=== PATIENT | female | born 1960 | race Caucasian/White ===

== ENCOUNTER 2019-04-06 22:47 | Inpatient (IN) | payer OTHER ==
[~2019-04-06] VITALS: Ht 160 cm; Wt 101.5 kg
--- NOTE | ~2019-04-06 | HC ---
[facility] [place] [address] CONSULTATION Name: BRIANA DOWLING Room #: 207-[facility] IN .R.#: [id number] Admission: 04/07/19 ������������������ Attend Phys: Hal Vickers MD Discharge: ������������������ Date of : 62 Report #: [id number] THIS REPORT FOR: //name// CC: [facility] physician/PCP Hal Vickers DATE OF SERVICE: 04/08/2019 NEPHROLOGY CONSULTATION REASON FOR CONSULTATION: Elevated creatinine. HISTORY OF PRESENT ILLNESS: A 58-year-old patient with COPD, presented with shortness of air. She was found to have a serum creatinine of 1.4 and past records showed a similar creatinine. She has a history of hypertension and has taken chlorthalidone and lisinopril as an outpatient. She also is on metoprolol. In addition, she has inhalers for her COPD. PAST SURGICAL HISTORY: Has included cholecystectomy and appendectomy. SOCIAL HISTORY: Remarkable for a heavy smoker on a daily basis. FAMILY HISTORY: Positive for coronary artery disease and lung disease. REVIEW OF SYSTEMS: GENERAL: She is unwell. EYES: Her vision is okay. ENT: Hearing okay. Swallows okay. No mouth sores. ENDOCRINE: No diabetes. RESPIRATORY: Easily short-winded with some cough, no hemoptysis. CARDIAC: No chest pain, angina, palpitations or history of myocardial infarction. GASTROINTESTINAL: Reasonably good appetite. She did have trouble with diarrhea that is better. No bloody stools. GENITOURINARY: Good stream without dysuria, hematuria, or renal stones. NEUROLOGIC: No seizure, syncope or stroke. PSYCHIATRIC: No depression or anxiety. PHYSICAL EXAMINATION: GENERAL: This is a somewhat overweight woman in no acute distress. SKIN: Unremarkable. SKELETAL: Shows her to be well developed, well nourished. No amputations. HEENT: Extraocular movements are full. No scleral icterus. Hearing and vision intact. Mucous membranes moist. Tongue, buccal mucosa benign. NECK: Supple. No JVD or lymphadenopathy. CHEST: Shows some wheezing and increased expiratory phase. [facility] [address] [place] [address] CONSULTATION Name: BRIANA DOWLING Room #: 207- ADM IN M.R.#: [id number] Admission: 04/07/19 ������������������ Attend Phys: Hal Vickers MD Discharge: ������������������ Date of : 62 Report #: [id number] HEART: Regular. ABDOMEN: Soft and nontender. EXTREMITIES: Show 1+ generalized edema. NEUROLOGIC: Grossly intact. LABORATORY AND DIAGNOSTIC DATA: Hemoglobin is 9.1. Sodium 140, potassium 4, chloride 104, bicarbonate 26, BUN 36, creatinine 2.1. ASSESSMENT: 1. Chronic kidney disease. Creatinine is up, particularly with her attempts at diuresis. Evaluation will include urinary studies, paraprotein studies, renal sonography. Given her generalized right-sided failure and volume overload, I am hesitant to give her any IV fluids at this point, but I would hold any further diuretics until we can sort this out a little bit better. She did get some IV Lasix over the last couple of days along with her creatinine going up. Because of her severe chronic obstructive pulmonary disease, probably a converting enzyme inhibitor should be avoided as she may have some compromised renal perfusion due to her cor pulmonale. 2. Chronic obstructive pulmonary disease. 3. History of hypertension. 4. Cigarette smoking. ��������������������������������������������� ���������������������������������������� By: ��������������������������������������������� 1126 1234 Adam Leyva MD /nt
[2019-04-06 23:22] LABS: BE(vivo) -4.1 mmol/L (-2 to +3); HCO3 22.3 mmol/L (22.0-26.0); PCO2 46.5 mmHg (35.0-45.0); PO2 176.1 mmHg (80.0-100.0)
[2019-04-06 23:24] LABS: pH 7.299 (7.360-7.450)
[2019-04-06 23:25] LABS: HEMATOCRIT 29.4 % (37.0-47.0); HEMOGLOBIN 9.6 gm/dL (12.0-15.0); MCH 26.1 pg (26.0-34.0); MCHC 32.5 g/dL (28.0-37.0); MCV 80.3 fL (80.0-100.0); PLATELET COUNT 304 thou/uL (150-400); RBC 3.66 mil/uL (4.20-5.00); RDW 18.7 % (10.5-14.5); WBC 12.9 thou/uL (4.0-11.0)
[2019-04-06] MEDS ORDERED: PROTONIX 20 MG20 M1 PO (23:31)
[2019-04-06] MEDS ORDERED: LOPRESSOR25 PO (23:31)
[2019-04-06] MEDS ORDERED: CARAFATE 1 GM TA1 G1 PO (23:32)
[2019-04-06] MEDS ORDERED: PROAIR HFA8.5 GM INH (23:32)
[2019-04-06] MEDS ORDERED: DULERA 200 MCG/13 GM INH (23:33)
[2019-04-06] MEDS ORDERED: XANAX 0.25 MG0.25 MG PO (23:33)
[2019-04-06] MEDS ORDERED: CHLORTHALIDONE25 MG PO (23:34)
[2019-04-06] MEDS ORDERED: LISINOPRIL10 MG PO (23:34)
[2019-04-06 23:38] LABS: CALCIUM 8.2 mg/dL (8.5-10.1); CREATININE 1.4 mg/dL (0.6-1.0); POTASSIUM 4.2 mmol/L (3.5-5.1)
[2019-04-06 23:42] LABS: TROPONIN-I 0.18 ng/mL (<0.06)
[2019-04-06 23:59] LABS: ANISOCYTOSIS 2+; PLATELET ESTIMATE NORMAL; POIKILOCYTOSIS 1+; POLYCHROMASIA 1+
[2019-04-07] VITALS (8 sets, daily range): BP systolic 104–160; BP diastolic 52–112
--- NOTE | 2019-04-07 03:07 | NUR ---
ADMIT;PT ADMITTED TO 207 FROM ED,ARRIVED TO UNIT VIA CART ACCOMPANIED BY THE RN.PT A/OX4,DX NSTEMI,HYPOXIA,ACUTE PULMONARY EDEMA.ON 02 AT 10LITERS PER NRB UPON ARRIVAL TO UNIT WITH SPO2 100%.PT SWITCHED TO NC AT 5LITERS,TOLERATING.SPO2 97%.ORIENTED PT TO AND UNIT ACTIVITIES.REVIEWED POC ,INAGREEMENT.LARRY WITH TOILETING.PT STATED THAT SHE GOT DISCHARGED FROM [facility] ON THE 04/04,SHE WAS THERE WITH ABDOMNIANL PAIN,CHEST PAIN.ADMISSION ASSESSMENT COMPLETED DOCUMENTED.PT DENIES PAIN.VSS.PT RESTING AT THIS TIME.DENIES ANY NEEDS AT THIS TIME.WILL CONT TO MONITOR PER POC.
[2019-04-07 05:48] LABS: HEMOGLOBIN 9.1 gm/dL (12.0-15.0); MCH 26.3 pg (26.0-34.0); MCHC 32.6 g/dL (28.0-37.0); MCV 80.9 fL (80.0-100.0); RBC 3.47 mil/uL (4.20-5.00); RDW 18.6 % (10.5-14.5)
[2019-04-07 06:02] LABS: ANION GAP 10 mmol/L (7-16); BUN 18 mg/dL (7-18); CALCIUM 8.1 mg/dL (8.5-10.1); CHLORIDE 106 mmol/L (98-107); CHOLESTEROL 144 mg/dL (<200); CO2 25 mmol/L (21-32); CREATININE 1.5 mg/dL (0.6-1.0); GLUCOSE 163 mg/dL (74-106); HDL CHOLESTEROL 34 mg/dL (>40); LDL CHOLESTEROL 68 mg/dL (<100); POTASSIUM 4.2 mmol/L (3.5-5.1); SERUM ASSESSMENT Clear; SODIUM 141 mmol/L (136-145); TC:HDL 4.2 Ratio (Not establshd); TRIGLYCERIDE 214 mg/dL (<150); VLDL 43 mg/dL (<40)
--- NOTE | 2019-04-07 08:32 | EKG ---
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 Santos : 1960 Requested By: Ronny Thomas Order Number: [id number] MD: Shadi Thompson Measurements Intervals [place] Rate: 87 P: 83 MA: 168 QRS: 45 QRSD: 81 T: 155 QT: 352 QTc: 424 Interpretive Statements Sinus rhythm Repol abnrm suggests ischemia, diffuse leads No previous ECG available for comparison Electronically Signed On 04-07-2019 8:32:21 CDT by Shadi Thompson [email or web address] ��������������������������������������������� <ELECTRONICALLY SIGNED> ���������������������������������������� By: Shadi Thompson MD, [facility] ��������������������������������������������� 04/07/19 0832 2259 2259 Shadi Thompson MD, FACC /EPI
--- NOTE | 2019-04-07 08:36 | EKG ---
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 : 1960 Requested By: Adam Restrepo Order Number: [id number] MD: hSadi Thompson Measurements Intervals [place] Rate: 96 P: 125 NE: 93 QRS: 51 QRSD: 82 T: 162 QT: 329 QTc: 416 Interpretive Statements Sinus rhythm Short NE interval Consider right atrial enlargement Repol abnrm suggests ischemia, anterolateral No previous ECG available for comparison Electronically Signed On 04-07-2019 8:36:01 CDT by Shadi Thompson [email or web address] ��������������������������������������������� <ELECTRONICALLY SIGNED> ���������������������������������������� By: Shadi Thompson MD, [facility] ��������������������������������������������� 04/07/19 0836 9 9 Shadi Thompson MD, FAC /EPI
[2019-04-07 11:10] LABS: GLYCOHEMOGLOBIN (HGB A1C) 5.6 % (4.8-5.6)
--- NOTE | 2019-04-07 13:12 | 2DMMODE ---
[facility] [address] [place] [address] 2 D/M-MODE ECHOCARDIOGRAM Name: BRIANA DOWLING Room #: 207-P ADM IN .R.#: [id number] ������������� Admission: 04/07/19 ������������� Attend Phys: Hal Vickers MD Discharge: ��� ������������� ��� Date of : 62 Date of Service: 04/07/19 1312 �� Report #: [id number] �������� ��������������������������������������������[id number] THIS REPORT FOR: //name// APPROVED REPORT Study performed: 04/07/2019 08:19:07 EXAM: Comprehensive 2D, Doppler, and color-flow Echocardiogram Patient Location: Echo lab Room #: 207 Status: routine BSA: 1.97 HR: 96 bpm BP: 104/52 mmHg Rhythm: NSR Other Information Study Quality: Good Indications Congestive Heart Failure Dyspnea Hx: COPD, HTN, CHF. 2D Dimensions RVDd: 25.14 mm IVSd: 12.07 (7-11mm) LVOT Diam: 19.83 (18-24mm) LVDd: 45.21 mm PWd: 12.82 (7-11mm) LVDs: 26.18 (25-40mm) Aortic Root: 32.90 mm Volumes Left Atrial Volume (Systole) Single Plane 4CH: 66.53 mL Single Plane 2CH: 67.50 mL LA ESV Index: 37.00 mL/m2 Aortic Valve AoV Peak Angelo.: 2.03 m/s AO Peak Gr.: 16.55 mmHg Mitral Valve MV Decel. Time: 180.76 ms MV PHT: 52.42 ms IVRT: 48.44 ms [facility] [address] [place] [address] 2 D/M-MODE ECHOCARDIOGRAM Name: BRIANA DOWLING Room #: 207-P [facility] IN .R.#: [id number] ������������� Admission: 04/07/19 ������������� Attend Phys: Hal Vickers MD Discharge: ��� ������������� ��� Date of : 62 Date of Service: 04/07/19 1312 �� Report #: [id number] �������� ��������������������������������������������[id number] Pulmonary Valve PV Peak Angelo.: 2.09 m/s PV Peak Gr.: 17.40 mmHg Pulmonary Vein P Vein S: 0.79 m/s P Vein A: 0.50 m/s P Vein D: 0.42 m/s P Vein A Dur.: 107.3 msec P Vein S/D Ratio: 1.88 Tricuspid Valve TR Peak Angelo.: 3.01 m/s RAP Estimate: 5.00 mmHg TR Peak Gr.: 36.26 mmHg PA Pressure: 41.00 mmHg Left Ventricle The left ventricle is normal size. There is normal LV segmental wall motion. Mild concentric left ventricular hypertrophy. Left ventricular systolic function is hyperdynamic. There is a left ventricular peak gradient of 85mmHg. LVEF is >70%. Mild diastolic dysfunction is present (impaired relaxation pattern). Right Ventricle The right ventricle is normal size. The right ventricle is hyperdynamic. Atria Left atrium is mildly dilated. The right atrium size is normal. Aortic Valve The aortic valve is normal in structure. No aortic regurgitation is present. There is no aortic valvular stenosis. Mitral Valve The mitral valve is normal in structure. Moderate mitral annular calcification. There is a mean pressure gradient through the MV of 10mmHg. May be due to increase flow velocites through out. There is no mitral valve regurgitation noted. Tricuspid Valve The tricuspid valve is normal in structure. Trace tricuspid regurgitation. Estimated PAP is 40-45mmHg. Pulmonic Valve Pulmonic valve is not well visualized. [facility] [address] [place] [address] 2 D/M-MODE ECHOCARDIOGRAM Name: BRIANA DOWLING Room #: 207-P ADM IN .R.#: [id number] ������������� Admission: 04/07/19 ������������� Attend Phys: Hal Vickers MD Discharge: ��� ������������� ��� Date of : 62 Date of Service: 04/07/19 1312 �� Report #: [id number] �������� ��������������������������������������������[id number] [employer] The aortic root is normal in size. Ascending aorta is not well visualized. IVC is normal in size and collapses >50% with inspiration. Pericardium Small pericardial effusion. <Conclusion> The left ventricle is normal size. Left ventricular systolic function is hyperdynamic. LVEF is >70%. Mild diastolic dysfunction is present (impaired relaxation pattern). The right ventricle is normal size. Left atrium is mildly dilated. The aortic valve is normal in structure. The mitral valve is normal in structure. Moderate mitral annular calcification. There is a mean pressure gradient through the MV of 10mmHg. May be due to increase flow velocites through out. Trace tricuspid regurgitation. Estimated PAP is 40-45mmHg. The aortic root is normal in size. Small pericardial effusion. ��������������������������������������������� <ELECTRONICALLY SIGNED> ���������������������������������������� By: Adam Restrepo MD, FACC ��������������������������������������������� 04/07/19 131 11 11 Adam Restrepo MD, FACC /INF
--- NOTE | 2019-04-07 16:11 | NUR ---
Chart reviewed and case discussed with the care team. Attempted to visit with the pt this afternoon;however she is sleeping. Nursing reports the pt to be a&ox4 and currently sba with transfers. She is now down to 5liters of o2 and does not wear it at home. She lives in a mobile home in [place], [place]. She noted her support system to be her dtrs Kiesha and Zaynab. She is disabled and has [place] medicaid coverage for f/u care and scripts. She was recently dc'd from [facility] on 04/04/19. She is a daily smoker. Will ask for therapy evaluations and reattempt to visit with the pt tomorrow.
--- NOTE | 2019-04-07 16:39 | NUR ---
ASSESSMENT CHARTED - MEDS PER PAUL - TOI DIET AND FLUIDS - FLUIDS RESTRICTED - EDUCATION GIVEN TO PATIENT ABOUT RESTRICTION - NO CO'S OF PAIN OR NAUSEA. UP TO THE COMMODE WITH STBY ASSIST - SOB WITH MIN EXERTION. PT HAD ECHO COMPLETED THIS AM. PT SNORES VERY LOUDLY- HAS SLEPT ON AND OFF THROUGHOUT THE DAY. NO CO'S AT THE PRESENT TIME.
--- NOTE | 2019-04-08 02:45 | NUR ---
ASSESSMENT DOCUMENTED.PT C/O NOT FEELING WELL AND HAVING DIFFICULTIES BREATHING.BREATHING TX GIVEN PER RT,SPO2 96%.ON O2AT 3LITERS PNC.SENIOR BUSINESS MANAGER LAVONNE NOTIFIED,INSTRUCTED TO GIVE AM LASIX DOSE.C/O LIAM IV SITE PAIN,IV D/CD,PT VERBALIZES RELIEF OF PAIN.PT SNORES VERY LOUD WHEN SLEEPING.PT DENIES ANY FURTHER NEEDS/CONCERNS AT THIS TIME.WILL CONT TO MONITOR PER POC.
[2019-04-08 03:36] VITALS: BP 152/83
[2019-04-08 04:46] LABS: CALCIUM 8.5 mg/dL (8.5-10.1); CREATININE 2.1 mg/dL (0.6-1.0)
[2019-04-08 07:50] VITALS: BP 154/80
[2019-04-08 11:40] VITALS: BP 134/79
--- NOTE | 2019-04-08 15:52 | NUR ---
No weekend dc anticipated. Pt was seen and cleared by therapy for functional mobility. Pt remains on 5-6li. Will reassess early next week for possible home o2 setup pending her progress.
[2019-04-08 16:38] LABS: PROT/CREAT RATIO 0.2; URINE CREATININE-RANDOM* 80.8 mg/dL; URINE PROTEIN-RANDOM* 18.1 mg/dL (<11.9)
--- NOTE | 2019-04-08 18:39 | HC ---
[facility] [place] [address] CONSULTATION Name: BRIANA DOWLING Room #: 207-P ADM IN M.R.#: [id number] Admission: 04/07/19 ������������������ Attend Phys: Hal Vickers MD Discharge: ������������������ Date of : 62 Report #: [id number] THIS REPORT FOR: //name// CC: [facility] physician/PCP Hal Vickers PULMONARY CONSULTATION PRIMARY CARE PHYSICIAN: Hal Vickers M.D. REASON FOR REFERRAL: Dyspnea. HISTORY OF PRESENT ILLNESS: The patient is a 58-year-old white female who presents to the ED with progressive dyspnea. A Pulmonary consultation was requested. History is limited as the patient is quite sleepy this morning. She was recently hospitalized at [facility] for abdominal pain and diarrhea. She notes that she caught a cold during the hospitalization. She also describes what appears to be cardiac evaluation while hospitalized at [facility]. The patient has known history of COPD. She continues to smoke about a pack a day. The patient notes increasing cough, dyspnea for the past few days. With worsening symptoms, she presented to the Emergency Room. PAST MEDICAL HISTORY: Notable for history of COPD, tobacco abuse, hypertension, hyperlipidemia and chronic kidney disease. PAST SURGICAL HISTORY: Unremarkable. ALLERGIES: None to medications. HOME MEDICATIONS: Lopressor 25 mg p.o. b.i.d., Protonix 20 mg once a day, Carafate 1 g p.o. t.i.d., ProAir 2 puffs p.r.n., Dulera 200 mcg two puffs twice a day, Xanax 0.25 mg p.o. b.i.d. p.r.n., chlorthalidone 12.5 mg p.o. every day and Zestril 10 mg once a day. FAMILY HISTORY: Noncontributory. SOCIAL HISTORY: She continues to smoke about a pack a day for most of her life. She denies any alcohol use. REVIEW OF SYSTEMS: As mentioned above, otherwise 10-point system review [address] [address] CONSULTATION Name: BRIANA DOWLING Room #: 207-[place] [facility] IN M.R.#: [id number] Admission: 04/07/19 ������������������ Attend Phys: Hal Vickers MD Discharge: ������������������ Date of : 62 Report #: [id number]. PHYSICAL EXAMINATION: GENERAL: On examination, she is awake, but appears sleepy, in no distress. VITAL SIGNS: Temperature is 98 degrees Fahrenheit, pulse is 90, respiratory rate is 18, blood pressure 128/67 mmHg and saturation 98%. HEENT: Normocephalic, atraumatic. NECK: Supple, without any lymphadenopathy or thyromegaly. CHEST: Breath sounds are fair, with mild expiratory wheezes. CARDIOVASCULAR: No obvious murmurs or gallop. Pulses are 2+/4+ bilaterally. ABDOMEN: Soft, nontender, moderately obese. GENITOURINARY: Deferred. RECTAL: Deferred. EXTREMITIES: There is no edema, cyanosis or clubbing. LABORATORY DATA: Portable chest x-ray shows cardiomegaly, increased normal vascular markings, haziness seen in the right lower lung field. No prior x-ray for comparison. Echocardiogram performed showed a normal LV function, mild diastolic dysfunction. Pulmonary artery pressure measuring 45 mmHg. EKG shows sinus rhythm, poor R-wave progression, no acute ST-wave changes. Troponin 0.1. BNP 6900. Arterial blood gas revealed pH of 7.29, pCO2 of 46 and pO2 of 176 on supplemental O2. Sodium 140, potassium 4.02, chloride 107, CO2 is 26 and creatinine is 1.4. WBC 12,900, hemoglobin is normal. No evidence of bandemia. IMPRESSION: 1. Progressive dyspnea and cough in this 58-year-old white female. She has a history of chronic obstructive lung disease along with tobacco abuse. Chest x-ray shows cardiomegaly. Echocardiogram revealed moderate pulmonary hypertension. Suspect exacerbation of chronic obstructive pulmonary disease as the primary cause. There is probably element of qbjzp-kd-vjzantf diastolic heart failure. Pneumonia is felt to be less likely. There is some subtle suggestion of infiltrates seen in the right lower lung field. 2. Acute hypercapnic hypoxic respiratory failure. Part of the acidosis is in part metabolic. 3. Mildly elevated troponin. 4. Hypertension. 5. Chronic kidney disease. RECOMMENDATIONS: Would suggest broad-spectrum antibiotics, bronchodilators and corticosteroids. Agree with diuresis. The patient's BMI is 34. When she was seen in consultation, the patient does have snoring when she sleeps. She should be screened for sleep apnea as an outpatient. DVT and GI prophylaxis recommended. [address] [address] CONSULTATION Name: BRIANA DOWLING Room #: 207-P ADM IN M.R.#: [id number] Admission: 04/07/19 ������������������ Attend Phys: Hal Vickers MD Discharge: ������������������ Date of : 62 Report #: [id number] Additional recommendation will be strongly recommend smoke cessation. Thank you for this consultation. ��������������������������������������������� <ELECTRONICALLY SIGNED> ���������������������������������������� By: Phillip Cuevas MD ��������������������������������������������� 04/08/19 1839 1752 2207 Phillip Cuevas MD /nt
--- NOTE | 2019-04-08 18:46 | NUR ---
AAOX4. PT, OT EVALS. BECOMES SOB WITH EXERTION. SINUS MARGARITA PER TELE. O2 PROTOCOL. CM HAS OPENED. FREQUENT CHECKS; WILL CONTINUE TO MONITOR.
[2019-04-08 19:48] VITALS: BP 100/78
[2019-04-09 04:18] VITALS: BP 151/69
[2019-04-09 05:21] LABS: ALBUMIN 2.9 g/dL (3.4-5.0); CALCIUM 7.8 mg/dL (8.5-10.1); CREATININE 1.9 mg/dL (0.6-1.0); PHOSPHORUS 2.6 mg/dL (2.5-4.9)
[2019-04-09 07:45] VITALS: BP 144/74
--- NOTE | 2019-04-09 08:28 | NUR ---
ASSUME CARE 1900. PT/VITALS STABLE. UP AD ALMA. SOA WITH ACTIIVITY. SHLLOW BRETHING NOTED WITH WHEEZES IN ALL 4 QUADRANTS. ASSESSMENT CHARTED. PROGRESSING WELL WITH POC. PLAN IS TO CONTINUE ABX AND BREATHING TXs. WILL CONTINUE TO FOLLOW WI POC
--- NOTE | 2019-04-09 11:09 | NUR ---
Assumed care of pt at 0700. Pt a&o x4. No c/o pain. On 3L O2. SOB with activity. IV antibiotics infusing. Call light within reach. Will continue to monitor and assist with needs.
[2019-04-09 11:50] VITALS: BP 144/97
[2019-04-09 15:50] VITALS: BP 158/69
[2019-04-09 19:45] VITALS: BP 160/78
[2019-04-10 04:00] VITALS: BP 160/84
--- NOTE | 2019-04-10 04:56 | NUR ---
ASSUMED PT CARE AT 1900. PT A/OX4, VITAL SIGNS STABLE, ASSESSMENT CHARTED. NO COMPLAINTS OF PAIN/CHEST PAIN. SOB WITH ACTIVITY. BREATHING TREATMENTS AND OXYGEN SEEMED TO HELP. PT RESTED WEL THROUGH THE NIGHT. CALLS OUT APPROPRIATELY. PROGRESSING TOWARD PLAN OF CARE. WILL CONTINUE TO MONITOR.
[2019-04-10 07:56] VITALS: BP 190/95
[2019-04-10 11:24] VITALS: BP 158/75
--- NOTE | 2019-04-10 15:19 | NUR ---
ASSUMED CARE AT SHIFT CHANGE, ALERT AND ORIENTED X4. ST-SR ON THE MONITOR, AND SOB WITH ACTIVITIES, BP ELEVATED THIS MORNING, MORING MEDS GIVEN AND LAMMOGLIA NOTIFIED. AFEBRILE,PROGRESSING TOWARDS GOAL AND WILL CONTINUE WITH POC.
[2019-04-10 16:52] VITALS: BP 193/84
[2019-04-10 19:31] VITALS: BP 171/79
[2019-04-11 03:18] LABS: ALBUMIN 3.1 g/dL (3.4-5.0); CALCIUM 8.2 mg/dL (8.5-10.1); CREATININE 1.6 mg/dL (0.6-1.0); PHOSPHORUS 2.6 mg/dL (2.5-4.9); POTASSIUM 4.2 mmol/L (3.5-5.1)
[2019-04-11 04:20] VITALS: BP 141/77
--- NOTE | 2019-04-11 04:36 | NUR ---
ASSESSMENT DOCUMENTED.PT RESTING IN NO ACUTE DISTRESSVSS.ON O2 PNC.PT STATES THAT SHE IS FEELING WELL OVERALL AND SHE FEELS READY TO GO HOME.STILL WITH MILD LARRY.ABT PER ORDERS.AMBULATING TO BR WITH STEADY GAIT.POC IS TO CONT WITH NEB TX,ABT,STREOIDS AND MOBILIZE.
[2019-04-11 07:50] VITALS: BP 151/78
[2019-04-11 10:10] LABS: KAPPA FREE LIGHT CHAINS 38.3 mg/L (3.3-19.4); KAPPA/LAMBDA RATIO 1.64 (0.26-1.65); LAMBDA FREE LIGHT CHAINS 23.4 mg/L (5.7-26.3)
[2019-04-11 11:50] VITALS: BP 117/84
[2019-04-11] MEDS ORDERED: AMLODIPINE BESYL5 M1 PO (12:22)
[2019-04-11] MEDS ORDERED: AUGMENTIN 875-1 EACH PO (12:24)
[2019-04-11] MEDS ORDERED: PREDNISONE 10 M10 MG PO (12:25)
[2019-04-11 13:24] VITALS: BP 141/77
--- NOTE | 2019-04-11 13:34 | NUR ---
ASSUMED CARE AT [facility] CHANGE, ALERT AND ORIENTED X4. SR ON THE MONITOR AND AFEBRILE, BP ELEVATED AND PATIENT WAS GIVEN MORNING MEDS AND BP 147/78 AT THIS TIME. DISCAHRGE AND MEDICATION INSTRUCTIONS GIVEN TO PATIENT AND SHE VERBALIZED UNDERSTANDING.
[2019-04-12 15:10] LABS: GLOBULIN TOTAL 2.9 g/dL (2.2-3.9); M-SPIKE Not Observed g/dL (Not Observed)
== END 2019-04-11 13:41 | disposition home or self-care (01) | DRG 280 ==
LOC: ER 22:47 → EROBS 04-07 00:25 → 2N 04-07 00:25 → ENTRNSPT 04-11 13:33 → EDTRNSPTSTS 04-11 13:36 → 2N 04-11 13:41
PROVIDERS: Emergency Medicine; Internal Medicine Nephrology; Internal Medicine Pulmonary Disease; Nurse Practitioner Family; ADMIT Hospitalist
DX: I21.4 Non-ST elevation (NSTEMI) myocardial infarction (principal); J96.21 Acute and chronic respiratory failure with hypoxia; J96.22 Acute and chronic respiratory failure with hypercapnia; I50.33 Acute on chronic diastolic (congestive) heart failure; I13.0 Hypertensive heart and chronic kidney disease with heart failure and stage 1 through stage 4 chronic kidney disease, or unspecified chronic kidney disease; E87.2 Acidosis; I31.3 Pericardial effusion (noninflammatory); N18.3 Chronic kidney disease, stage 3 (moderate); F17.210 Nicotine dependence, cigarettes, uncomplicated; E78.5 Hyperlipidemia, unspecified; I27.20 Pulmonary hypertension, unspecified; F41.9 Anxiety disorder, unspecified; J43.9 Emphysema, unspecified; I08.1 Rheumatic disorders of both mitral and tricuspid valves; Z79.899 Other long term (current) drug therapy; Z90.49 Acquired absence of other specified parts of digestive tract; Z82.49 Family history of ischemic heart disease and other diseases of the circulatory system; Z83.6 Family history of other diseases of the respiratory system
CPT/HCPCS: 10081

== ENCOUNTER 2019-06-07 10:53 | Inpatient (IN) | payer OTHER ==
[~2019-06-07] VITALS: Ht 160 cm; Wt 89.9 kg
[~2019-06-07 10:53] MED LIST: AMLODIPINE BESYL5 M1 PO; AUGMENTIN 875-1 EACH PO; CARAFATE 1 GM TA1 G1 PO; CHLORTHALIDONE25 MG PO; DOXYCYCLINE 10100 MG PO; DULERA 200 MCG/13 GM INH; LISINOPRIL10 MG PO; LOPRESSOR25 PO; PREDNISONE 10 M10 MG PO; PRILOSEC OTC20 MG PO; PROAIR HFA8.5 GM INH; PROTONIX 20 MG20 M1 PO; XANAX 0.25 MG0.25 MG PO
[2019-06-07 10:54] VITALS: BP 174/78
[2019-06-07] MEDS ORDERED: XANAX 0.25 MG0.25 MG PO (11:02)
[2019-06-07] MEDS ORDERED: LASIX 20 MG TAB20 MG PO (11:02)
[2019-06-07] MEDS ORDERED: HYDROXYZINE HCL25 M2 PO (11:02)
[2019-06-07] MEDS ORDERED: VENTOLIN HFA 1818 GM INH (11:03)
[2019-06-07 11:14] LABS: HEMATOCRIT 26.5 % (37.0-47.0); HEMOGLOBIN 8.2 gm/dL (12.0-15.0); MCH 22.4 pg (26.0-34.0); MCV 72.3 fL (80.0-100.0); PLATELET COUNT 597 thou/uL (150-400); RBC 3.66 mil/uL (4.20-5.00); RDW 19.7 % (10.5-14.5); WBC 23.1 thou/uL (4.0-11.0)
[2019-06-07 11:22] LABS: CALCIUM 8.9 mg/dL (8.5-10.1); CREATININE 1.5 mg/dL (0.6-1.0); POTASSIUM 3.9 mmol/L (3.5-5.1)
[2019-06-07 11:30] LABS: URINE BILIRUBIN NEGATIVE (Negative); URINE BLOOD NEGATIVE (Negative); URINE CLARITY CLEAR; URINE COLOR YELLOW; URINE GLUCOSE-RANDOM* NEGATIVE (Negative); URINE KETONES NEGATIVE (Negative); URINE LEUKOCYTES 1+ (Negative); URINE NITRITE NEGATIVE (Negative); URINE PROTEIN (DIPSTICK) NEGATIVE (Negative); URINE SPECIFIC GRAVITY 1.015 (1.005-1.035); URINE UROBILINOGEN 0.2 E.U./dl (0.2-1.0)
[2019-06-07 11:32] LABS: ALBUMIN 3.1 g/dL (3.4-5.0); TOTAL BILIRUBIN 0.3 mg/dL (<0.1-1.0); TOTAL PROTEIN 7.1 g/dL (6.4-8.2); TROPONIN-I 0.06 ng/mL (<0.06)
[2019-06-07 12:03] LABS: BACTERIA 1-9 Few /HPF (None Seen); CASTS None Seen /LPF (None Seen); CRYSTALS None Seen /LPF (None Seen); SQUAMOUS >10 Many /LPF (0-3); URINE RBC 0-2 Rare /HPF (0-2); URINE WBC 0-5 Rare /HPF (0-5)
[2019-06-07 12:13] LABS: ABSOLUTE NEUTROPHILS 17.8 thou/uL (1.4-8.2); ANISOCYTOSIS 2+; HYPOCHROMASIA 1+; MICROCYTES 3+; PLATELET ESTIMATE INCREASED
[2019-06-07 12:14] LABS: POLYCHROMASIA 1+
[2019-06-07 13:17] VITALS: BP 176/107
[2019-06-07 13:45] VITALS: BP 175/88
[2019-06-07 14:30] VITALS: BP 151/81
--- NOTE | 2019-06-07 17:30 | EKG ---
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 : 1960 Requested By: Juan Daniel Lyon Order Number: [id number] MD: Shadi Thompson Measurements Intervals [place] Rate: 100 P: 81 PA: 184 QRS: 40 QRSD: 104 T: 183 QT: 348 QTc: 449 Interpretive Statements Sinus tachycardia Nonspecific ST and T wave abnormality Compared to ECG 04/26/2019 06:23:57 No significant change was found Electronically Signed On 06-07-2019 17:30:38 CDT by Shadi Thompson [email or web address] <ELECTRONICALLY SIGNED> By: Shadi Thompson MD, [facility] 06/07/19 1730 1056 1056 Shadi Thompson MD, [facility] /EPI
[2019-06-07 20:17] VITALS: BP 176/89
[2019-06-07 23:41] VITALS: BP 190/107
[2019-06-08 05:41] VITALS: BP 153/86
[2019-06-08 05:58] LABS: HEMATOCRIT 26.3 % (37.0-47.0); HEMOGLOBIN 8.2 gm/dL (12.0-15.0); MCH 22.7 pg (26.0-34.0); MCHC 31.1 g/dL (28.0-37.0); MCV 73.1 fL (80.0-100.0); RBC 3.6 mil/uL (4.20-5.00); RDW 20.5 % (10.5-14.5)
[2019-06-08 06:30] LABS: ANION GAP 8 mmol/L (7-16); BUN 42 mg/dL (7-18); CALCIUM 8.4 mg/dL (8.5-10.1); CHLORIDE 104 mmol/L (98-107); CO2 28 mmol/L (21-32); CREATININE 1.5 mg/dL (0.6-1.0); GLUCOSE 147 mg/dL (74-106); PHOSPHORUS 4.6 mg/dL (2.5-4.9); POTASSIUM 4.7 mmol/L (3.5-5.1); SODIUM 140 mmol/L (136-145); TROPONIN-I <0.06 ng/mL (<0.06)
[2019-06-08 07:33] VITALS: BP 164/74
[2019-06-08 10:59] VITALS: BP 166/74
[2019-06-08 16:01] VITALS: BP 175/89
[2019-06-08 19:31] VITALS: BP 160/81
[2019-06-08 20:00] VITALS: BP 187/79
[2019-06-09 03:50] VITALS: BP 154/88
[2019-06-09 07:52] VITALS: BP 174/89
[2019-06-09] MEDS ORDERED: PREDNISONE 20 M20 MG PO (09:10)
[2019-06-09 11:30] VITALS: BP 136/99
[2019-06-09 11:53] VITALS: BP 174/89
== END 2019-06-09 13:00 | disposition home or self-care (01) | DRG 189 ==
LOC: ER 10:53 → EROBS 12:21 → 3W 12:21 → ENTRNSPT 06-09 12:36 → EDTRNSPTSTS 06-09 12:38 → 3W 06-09 13:00
PROVIDERS: Emergency Medicine; ADMIT Hospitalist
DX: J96.21 Acute and chronic respiratory failure with hypoxia (principal); I13.0 Hypertensive heart and chronic kidney disease with heart failure and stage 1 through stage 4 chronic kidney disease, or unspecified chronic kidney disease; I50.9 Heart failure, unspecified; J43.9 Emphysema, unspecified; N18.3 Chronic kidney disease, stage 3 (moderate); E87.70 Fluid overload, unspecified; Z79.899 Other long term (current) drug therapy
CPT/HCPCS: 10879

== ENCOUNTER 2019-06-26 11:15 | Inpatient (IN) | payer OTHER ==
[~2019-06-26] VITALS: Ht 160 cm; Wt 88.0 kg
[~2019-06-26 11:15] MED LIST changes: +HYDROXYZINE HCL25 M2 PO; +LASIX 20 MG TAB20 MG PO; +PREDNISONE 20 M20 MG PO; +VENTOLIN HFA 1818 GM INH
[2019-06-26 12:20] VITALS: BP 147/83
[2019-06-26 14:57] LABS: HEMATOCRIT 25.9 % (37.0-47.0); HEMOGLOBIN 7.9 gm/dL (12.0-15.0); MCH 21.8 pg (26.0-34.0); MCHC 30.6 g/dL (28.0-37.0); MCV 71.2 fL (80.0-100.0); RBC 3.64 mil/uL (4.20-5.00); RDW 20.4 % (10.5-14.5); WBC 13.1 thou/uL (4.0-11.0)
[2019-06-26 15:11] LABS: CREATININE 1.4 mg/dL (0.6-1.0); MAGNESIUM 1.4 mg/dL (1.8-2.4); POTASSIUM 3.4 mmol/L (3.5-5.1); TROPONIN-I 0.07 ng/mL (<0.06)
[2019-06-26 15:14] LABS: % SATURATION 5 % (20-39); IRON 20 ug/dL (50-170); TIBC 388 ug/dL (250-450)
[2019-06-26 16:52] VITALS: BP 155/83
[2019-06-26 18:12] LABS: FOLIC ACID 12.5 ng/mL (8.6-58.9); TSH 1.746 uIU/mL (0.358-3.740)
[2019-06-26 19:11] VITALS: BP 158/83
--- NOTE | 2019-06-26 20:07 | NUR ---
pt admitted from [facility] ER for COPD EXACERBATION, PT is A&OX3, PT is O2 4L/MIN/NC, PT has SOB with acitive, pt's vs are stable, RN has called dr to report pt's ABNORMAL chest X-RAY and LAB results, new order received.RN will report to to next shift to keep eye on pt.
[2019-06-26 23:26] VITALS: BP 143/66
[2019-06-27 04:23] VITALS: BP 146/85
--- NOTE | 2019-06-27 05:09 | NUR ---
SLEPT MOST OF SHIFT. STATES WAS AWAKE PART OF THE TIME BUT FELL ASLEEP AND FEELS SO MUCH BETTER THIS AM. NO FURTHER COMPLAINTS OF PAIN THIS SHIFT. COMPLAINTS OF HEARTBURN AND TUMS GIVEN. UP TO BEDSIDE COMMODE NEEDED WITH STEADY GAIT. STATES IS WHEEZING LESS THIS AM. WORKING ON GOALS AND PLAN OF CARE FOR NOC. PROGRESSING SLOWLY TOWARDS DISCHARGE GOALS. CONTINUE TO ASSES CLOESLY.
[2019-06-27 05:51] LABS: HEMATOCRIT 23.4 % (37.0-47.0); MCH 21.3 pg (26.0-34.0); MCHC 29.8 g/dL (28.0-37.0); MCV 71.6 fL (80.0-100.0); RBC 3.27 mil/uL (4.20-5.00); RDW 20.7 % (10.5-14.5); WBC 17.8 thou/uL (4.0-11.0)
[2019-06-27 06:05] LABS: ALBUMIN 3.2 g/dL (3.4-5.0); CREATININE 1.7 mg/dL (0.6-1.0); MAGNESIUM 2.5 mg/dL (1.8-2.4); POTASSIUM 4.1 mmol/L (3.5-5.1); TOTAL BILIRUBIN 0.3 mg/dL (<0.1-1.0); TOTAL PROTEIN 6.7 g/dL (6.4-8.2); TROPONIN-I 0.12 ng/mL (<0.06)
--- NOTE | 2019-06-27 07:47 | EKG ---
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: Ned SANCHEZ : 1960 Requested By: Brendan Vaughan Order Number: [id number] MD: Shadi Thompson Measurements Intervals [place] Rate: 103 P: 90 [place]: 186 QRS: 49 QRSD: 74 T: 113 QT: 329 QTc: 431 Interpretive Statements Sinus tachycardia ST and T wave abnormality Compared to ECG 06/07/2019 10:56:56 No significant change was found Electronically Signed On 06-27-2019 7:47:27 CDT by Shadi Thompson [email or web address] ��������������������������������������������� <ELECTRONICALLY SIGNED> ���������������������������������������� By: Shadi Thompson MD, [facility] ��������������������������������������������� 06/27/19 0747 1434 1434 Shadi Thompson MD, [facility] /EPI
[2019-06-27 08:04] VITALS: BP 146/81
--- NOTE | 2019-06-27 08:26 | EKG ---
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 : 1960 Requested By: Brendan Vaughan Order Number: [id number] MD: Shadi Thompson Measurements Intervals [place] Rate: 100 P: 95 SD: 186 QRS: 38 QRSD: 85 T: 192 QT: 347 QTc: 448 Interpretive Statements Sinus tachycardia RSR' in V1 or V2, probably normal variant Nonspecific ST and T wave abnormality Compared to ECG 06/26/2019 14:34:52 No significant change was found Electronically Signed On 06-27-2019 8:26:25 CDT by Shadi Thompson [email or web address] ��������������������������������������������� <ELECTRONICALLY SIGNED> ���������������������������������������� By: Shadi Thompson MD, [facility] ��������������������������������������������� 06/27/19825 0 0 Shadi Thompson MD, [facility] /EPI
[2019-06-27 11:52] VITALS: BP 141/67
--- NOTE | 2019-06-27 14:47 | 2DMMODE ---
[facility] [address] [place] [address] 2 D/M-MODE ECHOCARDIOGRAM Name: BRIANA DOWLING Room #: 356-P ADM IN M.R.#: [id number] ������������� Admission: 06/26/19 ������������� Attend Phys: Brendan Vaughan MD Discharge: ��� ������������� ��� Date of : 62 Date of Service: 06/27/19 1447 �� Report #: [id number] �������� ��������������������������������������������[id number] THIS REPORT FOR: //name// APPROVED REPORT Study performed: 06/27/2019 13:29:34 EXAM: Comprehensive 2D, Doppler, and color-flow Echocardiogram Patient Location: Bedside Room #: 356 Status: routine BSA: 1.89 HR: 95 bpm BP: 141/67 mmHg Rhythm: NSR Other Information Study Quality: Adequate Indications COPD Dyspnea Elevated Troponin Hypertension/HDD 2D Dimensions RVDd: 41.18 mm IVSd: 13.34 (7-11mm) LVOT Diam: 20.22 (18-24mm) LVDd: 42.91 mm PWd: 14.06 (7-11mm) Ascending Ao: 30.17 (22-36mm) LVDs: 28.85 (25-40mm) Aortic Root: 26.19 mm IVC: 23.00 mm Volumes Left Atrial Volume (Systole) Single Plane 4CH: 84.52 mL Single Plane 2CH: 87.42 mL LA ESV Index: 49.00 mL/m2 Aortic Valve AoV Peak Angelo.: 1.10 m/s AO Peak Gr.: 4.88 mmHg LVOT Max P.27 mmHg LVOT Max V: 1.03 m/s MIKAL Vmax: 3.01 cm2 Mitral Valve [facility] [address] [place] [address] 2 D/M-MODE ECHOCARDIOGRAM Name: BRIANA DOWLING Room #: 356-P [facility] IN .R.#: [id number] ������������� Admission: 06/26/19 ������������� Attend Phys: Brendan Vaughan MD Discharge: ��� ������������� ��� Date of : 62 Date of Service: 06/27/19 1447 �� Report #: [id number] �������� ��������������������������������������������[id number] E/A Ratio: 0.8 MV Decel. Time: 298.88 ms MV E Max Angelo.: 1.43 m/s MV A Angelo.: 1.87 m/s MV PHT: 86.68 ms IVRT: 134.95 ms Pulmonary Valve PV Peak Angelo.: 1.50 m/s PV Peak Gr.: 9.05 mmHg Pulmonary Vein P Vein S: 1.07 m/s P Vein A: 0.27 m/s P Vein D: 0.40 m/s P Vein A Dur.: 138.4 msec P Vein S/D Ratio: 2.67 Tricuspid Valve TR Peak Angelo.: 3.29 m/s TR Peak Gr.: 43.29 mmHg PA Pressure: 53.00 mmHg Left Ventricle The left ventricle is normal size. Mild concentric left ventricular hypertrophy. The left ventricular systolic function is normal. The left ventricular ejection fraction is within the normal range. LVEF is 60-65%. Grade I - abnormal relaxation pattern. Right Ventricle Right ventricle is dilated. The right ventricular systolic function is normal. Atria Left atrium is dilated. Right atrium is dilated. Aortic Valve The aortic valve is normal in structure. No aortic regurgitation is present. There is no aortic valvular stenosis. Mitral Valve The mitral valve is normal in structure. Mild mitral regurgitation. No evidence of mitral valve stenosis. Tricuspid Valve The tricuspid valve is normal in structure. There is trace to mild tricuspid regurgitation. Estimated PAP 53 mmHg. There is moderate pulmonary hypertension. [facility] [address] [place] [address] 2 D/M-MODE ECHOCARDIOGRAM Name: BRIANA DOWLING Room #: 356-P [facility] IN .R.#: [id number] ������������� Admission: 06/26/19 ������������� Attend Phys: Brendan Vaughan MD Discharge: ��� ������������� ��� Date of : 62 Date of Service: 06/27/19 1447 �� Report #: [id number] �������� ��������������������������������������������[id number] Pulmonic Valve The pulmonary valve is normal in structure. There is no pulmonic valvular regurgitation. Great Vessels The aortic root is normal in size. IVC is dilated and collapses >50% with inspiration. Pericardium Mild circumferential pericardial effusion. <Conclusion> The left ventricle is normal size. LVEF is 60-65%. Right ventricle is dilated. The right ventricular systolic function is normal. Left atrium is dilated. Right atrium is dilated. The aortic valve is normal in structure. The mitral valve is normal in structure. Mild mitral regurgitation. The tricuspid valve is normal in structure. There is trace to mild tricuspid regurgitation. Estimated PAP 53 mmHg. There is moderate pulmonary hypertension. The pulmonary valve is normal in structure. Mild circumferential pericardial effusion. ��������������������������������������������� <ELECTRONICALLY SIGNED> ���������������������������������������� By: Magnus Koch MD ��������������������������������������������� 06/27/19 1447 1447 1447 Magnus Koch MD /INF
--- NOTE | 2019-06-27 15:57 | NUR ---
ASSESSMENT: CM REVIEWED CHART AND MET WITH PATIENT AT THE BEDSIDE. PT IS ALERT AND ORIENTED X4. PT WAS ADMITTED DUE TO RESPIRATORY FAILURE/ INCREASED TROPONIN. PT REPORTS SHE LIVES IN A MOBILE HOME ALONE AND IS ABOUT TO MOVE INTO A NEW MOBIEL HOME. PT REPORTS SHE HAS ABOUT 3 STEPS WITH NO HANDRAILS TO ENTER. SHE STATES ONCE INSIDE SHE HAS ONE STEP UP INTO HER KITCHEN. PT REPORTS SHE AMBULATES INDEPENDENTLY BUT DOES HAVE A WALKER AT HOME. PT REPORTS HAVING OXYGEN AT HOME 2L AT HER BASELINE THROUGH [facility] AND ALSO HAS A NEBULIZER. CM DISCUSSED ROLE. PT STATES SHE IS INTERESTED IN SEEING IF SHE CAN GET SOME HELP IN HER HOME TO ASSIST WITH CLEANING/COOKING. CM DISCUSSED PATIENT HAS MEDICAID AND WE CAN SEE IF SHE QUALIFIES FOR HOMEMAKER SERVICES. CM ATTEMPTED TO START THAT SCREENING PROCESS BY CALLING [phone]. THEY ARE THEN TO CONTACT PATIENT. CM WILL CONTINUE TO FOLLOW TO ASSIST NEEDED.
[2019-06-27 16:19] VITALS: BP 141/67
[2019-06-27 16:36] VITALS: BP 162/79
--- NOTE | 2019-06-27 18:13 | NUR ---
ASSUMED PATIENT CARE AT 0700. A/O X4. ON 4L/NC SOB WITH EXERTION. PATIENT DENIES CHEST PAIN. UP AD ALMA. WILL NPO AFTER MIDNIGHT TO HAVE COLONOSCOPY TOMORROW.
[2019-06-27 19:29] VITALS: BP 177/87
[2019-06-28 00:15] VITALS: BP 164/89
[2019-06-28 04:43] VITALS: BP 172/98
--- NOTE | 2019-06-28 04:44 | NUR ---
Requested pain med at for chronic back pain with good relief. O2 at 4L/NC , shortness of breath with exertion. Up with assist to bathroom using walker. Bed alarm on for safety. Voided per bathroom and some are unmeasured due to bowel prep. Pt. completed bowel prep before 1900 but only had hard bm x1 since. Dr. Lee notified and order for enema obtained. First enema given after MN then another enema this am. She started to have liquid stools after enema given. Kept NPO since IL for Colonoscopy today. No active bleeding. Will continue to monitor.
[2019-06-28 05:34] LABS: ABSOLUTE NEUTROPHILS 16.3 thou/uL (1.4-8.2); BASOPHILS 0.1 % (0.0-2.0); EOSINOPHILS 0.1 % (0.0-3.0); HEMATOCRIT 24.2 % (37.0-47.0); HEMOGLOBIN 7.1 gm/dL (12.0-15.0); LYMPHOCYTES 6.3 % (24.0-44.0); MCH 21.3 pg (26.0-34.0); MCHC 29.5 g/dL (28.0-37.0); MCV 72.1 fL (80.0-100.0); PLATELET COUNT 564 thou/uL (150-400); POLYS 91.5 % (36.0-66.0); RBC 3.35 mil/uL (4.20-5.00); WBC 17.8 thou/uL (4.0-11.0)
[2019-06-28 05:45] LABS: CALCIUM 9.1 mg/dL (8.5-10.1); CREATININE 1.4 mg/dL (0.6-1.0); MAGNESIUM 2.1 mg/dL (1.8-2.4); POTASSIUM 4.8 mmol/L (3.5-5.1); TROPONIN-I 0.07 ng/mL (<0.06)
[2019-06-28 07:52] VITALS: BP 179/96
[2019-06-28 09:37] LABS: CHOLESTEROL 158 mg/dL (<200); HDL CHOLESTEROL 47 mg/dL (>40); LDL CHOLESTEROL 67 mg/dL (<100); TC:HDL 3.4 Ratio (Not establshd); TRIGLYCERIDE 222 mg/dL (<150); VLDL 44 mg/dL (<40)
[2019-06-28 14:25] VITALS: BP 154/74
[2019-06-28 20:10] VITALS: BP 142/88
--- NOTE | 2019-06-29 02:50 | NUR ---
SLEPT MOST OF SHIFT PAST PAIN MEDICATION FOR LOW BACK PAIN. UP AD ALMA TO BATHROOM WITH STEADY GAIT. WANTS TO GO HOME IN AM. STATES SOA IS BETTER. WORKING ON GOALS AND PLAN OF CARE FOR NOC. PROGRESSING SLOWLY TOWARDS DISCHARGE GOALS. CONTINUE TO ASSES CLOESLY.
[2019-06-29 04:37] VITALS: BP 163/76
--- NOTE | 2019-06-29 07:58 | EKG ---
[address] [place] [address] ELECTROCARDIOGRAM REPORT Name: BRIANA DOWLING Room #: 356-P ADM IN M.R.#: [id number] ������������������ Admission: 06/26/19 ������������������ Attend Phys: Brendan Vaughan MD Discharge: ������������������ Date of : 62 Report #: [id number] ����������������������������������������������������������������� [id number] THIS REPORT FOR: //name// [facility] Test Date: 2019-06-28 Test Time: 10:09:22 Pat Name: BRIANA DOWLING Department: Room: 356 Gender: F Lead Front End Developer: KAYLEN : 1960 Requested By: Brendan Vaughan Order Number: [id number] MD: Shadi Thompson Measurements Intervals [place] Rate: 87 P: 81 [place]: 188 QRS: 36 QRSD: 107 T: 178 QT: 363 QTc: 437 Interpretive Statements Sinus rhythm RSR' in V1 or V2, probably normal variant Repol abnrm suggests ischemia, lateral leads Minimal ST elevation, anterior leads Compared to ECG 06/27/2019 08:21:09 no significant change was found Electronically Signed On 06-29-2019 7:58:37 CDT by Shadi Thompson [email or web address] ��������������������������������������������� <ELECTRONICALLY SIGNED> ���������������������������������������� By: Shadi Thompson MD, [facility] ��������������������������������������������� 06/29/19 0758 1009 1009 Shadi Thompson MD, [facility] /EPI
[2019-06-29 09:02] VITALS: BP 160/92
[2019-06-29 10:37] LABS: CALCIUM 9.1 mg/dL (8.5-10.1); CREATININE 1.7 mg/dL (0.6-1.0); POTASSIUM 4.6 mmol/L (3.5-5.1)
[2019-06-29 12:43] VITALS: BP 157/72
--- NOTE | 2019-06-29 14:57 | NUR ---
ON-GOING ASSESSMENT: PT IS SLOWLY PROGRESSING TOWARDS DISCHARGE GOALS. PT IS POSSIBLY DISCHARGING TOMORROW. CM MET WITH PATIENT AND SHE IS INTERSTED IN (PT HAS MEDICAID SO IS ONLY ABLE TO GET RN FOR ). CM DISCUSSED OPTIONS WITH PATIENT AND [facility]PT[facility]ID PATIENTS AT THIS TIME SO PT WANTED REFERRAL SENT THERE. CM SENT REFERRAL TO [facility] AND WAITING TO HEAR BACK.
[2019-06-29 19:02] VITALS: BP 146/78
[2019-06-29 19:07] LABS: CD3 % 87.7 % (57.5-86.2); CD4 % 61.8 % (30.8-58.5); CD4:CD8 2.39 (0.92-3.72); CD8 % 25.9 % (12.0-35.5)
[2019-06-30] VITALS (7 sets, daily range): BP systolic 136–149; BP diastolic 67–78
--- NOTE | 2019-06-30 03:02 | NUR ---
ASSUMED PT CARE AROUND 2300. A&OX4. C/O CHRONIC BACK PAIN. PAIN MEDICATION WITH SOME RELIEF. UP AD ALMA AROUND THE ROOM. VSS. SR ON TELE. NPO AFTER MIDNIGHT. PT SLEEPING AT THIS TIME. PROGRESSING TOWARD POC GOALS. WILL CONTINUE TO MONITOR FURTHER.
[2019-06-30 05:42] LABS: HEMATOCRIT 23.2 % (37.0-47.0); MCH 21.5 pg (26.0-34.0); MCHC 30.2 g/dL (28.0-37.0); MCV 71.2 fL (80.0-100.0); RBC 3.26 mil/uL (4.20-5.00); RDW 20.2 % (10.5-14.5); WBC 15.4 thou/uL (4.0-11.0)
[2019-06-30 06:04] LABS: ALBUMIN 3.4 g/dL (3.4-5.0); CALCIUM 8.8 mg/dL (8.5-10.1); CREATININE 1.5 mg/dL (0.6-1.0); POTASSIUM 4.8 mmol/L (3.5-5.1); TOTAL BILIRUBIN 0.2 mg/dL (<0.1-1.0); TOTAL PROTEIN 6.7 g/dL (6.4-8.2)
[2019-06-30] MEDS ORDERED: METOPROLOL SUCC50 MG PO (11:27)
[2019-06-30] MEDS ORDERED: DEMADEX 2020 MG/1 TA PO (11:28)
[2019-06-30] MEDS ORDERED: K-DUR 20 MEQ T20 MEQ PO (11:28)
[2019-06-30] MEDS ORDERED: AMLODIPINE BESY10 MG PO (11:28)
[2019-06-30] MEDS ORDERED: VITAMIN B-12500 MCG PO (11:31)
[2019-06-30] MEDS ORDERED: AZITHROMYCIN 2250 MG PO (11:31)
[2019-06-30] MEDS ORDERED: PREDNISONE 20 M20 M1 PO (11:32)
--- NOTE | 2019-06-30 12:17 | NUR ---
on-going assessment: PT HAS ORDERS TO DISCHARGE HOME TODAY WITH HH. [facility] HAS ACCEPTED PATIENT FOR HH NEEDS. CM FAXED D.C. ORDERS AND SUMMARY TO [facility] . CM ALSO PROVIDED PATIENT WITH SENIOR BLUE BOOK SHE ASKED FOR INFORMATION ON [employer] AND CM ALSO PRINTED OUT [employer] RESOURCE SHEET. HOMEMAKER SERVICES CONTACTED HER AND HAVE AN APPT TO SEE HER IN HER HOME IN A COUPLE WEEKS. PT HAS TRANSPORTATION HOME. PT REPORTS NO FURTHER NEEDS FROM AT THIS TIME.
--- NOTE | 2019-06-30 12:52 | NUR ---
Assumed care approx. 0700 this AM. Discharge orders recieved this afternoon. Patient given discharge packet with education given and prescriptions with information on each new script recieved. All belongings with patient. IV and tele dc'd. Patient left by wheelchair with transporter and ride home at 1251.
--- NOTE | 2019-07-01 17:12 | P ---
[facility] [place] [address] PROCEDURE REPORT Name: BRIANA DOWLING Room #: 356-P [facility] IN M.R.#: [id number] Admission: 06/26/19 ������������������ Attend Phys: Brednan Vaughan MD Discharge: 06/30/19 ������������������ Date of : 62 Report #: [id number] THIS REPORT FOR: //name// CC: FAM unknown Elin Wilcox Brendan Vaughan DATE OF SERVICE: 06/28/2019 BRIEF HISTORY: The patient is a 58-year-old woman with progressively worsening anemia and findings of Hemoccult-positive stools. She has never had a colonoscopy. PREOPERATIVE DIAGNOSES: Anemia and Hemoccult-positive stools. POSTOPERATIVE DIAGNOSIS: Anemia and Hemoccult-positive stools. MEDICATIONS: Deep sedation with propofol per Anesthesia. SPECIMEN: None. ESTIMATED BLOOD LOSS: None. PROCEDURE: Colonoscopy to cecum and terminal ileum. FINDINGS: Prior to propofol sedation, procedure of colonoscopy discussed with the patient as well as potential risks and its complications. She indicates she understands and desires to proceed. DESCRIPTION OF PROCEDURE: With the patient in left lateral decubitus position, digital examination was completed, which revealed no abnormalities. Subsequently, the Olympus video colonoscope was introduced in the rectum, advanced under direct vision to the cecum. Done with minimal difficulty. Cecum was identified by the ileocecal valve. Unfortunately, there was a pool of liquidy material in the cecum. It did contain a fair amount of particulate matter and so I could not aspirate it away completely. However, much was reduced and we rolled the patient from side to side. We were able to displace much of the fluid. Within these limitations, no obvious abnormalities were seen in the cecum. I did have a brief glimpse of the appendiceal orifice, which appeared to be unremarkable. However, due to residual material, small lesion could have been overlooked. In addition, ileocecal valve was unremarkable. Distal segment of terminal ileum was unremarkable. At that point, the scope was slowly withdrawn and careful circumferential views were obtained. As we withdrew the scope, the mucosa was inspected. In many areas of the colon, the prep was good. However, in several areas, there was some residual liquid material with particulate matter that could not be easily aspirated away. We [facility] [address] [place] [address] PROCEDURE REPORT Name: BRIANA DOWLING Room #: 356-P DIS IN M.R.#: [id number] Admission: 06/26/19 ������������������ Attend Phys: Brendan Vaugahn MD Discharge: 06/30/19 ������������������ Date of : 62 Report #: [id number] tried to displace and lavaged and suction as much as possible, but not all could be removed. Within these limitations, a small lesion could have been overlooked. However, again much of the colon was seen and was within normal limits, normal vascular pattern, normal light reflex. Bleeding lesions were not identified. Neoplastic lesions were not seen within the limitations of prep. Scope was withdrawn from the rectum. Upon retroflexion, no abnormalities were seen. Scope was withdrawn. The patient tolerated the procedure well. DISPOSITION: The patient with anemia and Hemoccult-positive stools. I do not see evidence of bleeding lesions. There were some limitations of prep and therefore, suggest she return in 2 years for followup colonoscopy. As far as anemia and Hemoccult-positive stools, there is a possibility she has watermelon stomach based on previous endoscopic findings. Treatment of watermelon stomach may be indicated if her hemoglobin continues to drop. ��������������������������������������������� <ELECTRONICALLY SIGNED> ���������������������������������������� By: Adrian Lee MD ��������������������������������������������� 07/01/19 1712 1204 2333 Adrian Lee MD /nt
== END 2019-06-30 12:51 | disposition home health service (06) | DRG 291 ==
LOC: 3W 11:15 → ENTRNSPT 06-30 12:44 → EDTRNSPTSTS 06-30 12:47 → 3W 06-30 12:51
PROVIDERS: Internal Medicine; Nurse Practitioner; Nurse Practitioner Adult Health; Nurse Practitioner Family; ADMIT Internal Medicine
PROC: 0DJD8ZZ Inspection of Lower Intestinal Tract, Via Natural or Artificial Opening Endoscopic (ICD-10-PCS; principal; 2019-06-28)
DX: I13.0 Hypertensive heart and chronic kidney disease with heart failure and stage 1 through stage 4 chronic kidney disease, or unspecified chronic kidney disease (principal); J96.21 Acute and chronic respiratory failure with hypoxia; I50.33 Acute on chronic diastolic (congestive) heart failure; N17.9 Acute kidney failure, unspecified; F17.210 Nicotine dependence, cigarettes, uncomplicated; J43.9 Emphysema, unspecified; N18.3 Chronic kidney disease, stage 3 (moderate); R19.5 Other fecal abnormalities; K31.84 Gastroparesis; E78.5 Hyperlipidemia, unspecified; E53.8 Deficiency of other specified B group vitamins; I34.0 Nonrheumatic mitral (valve) insufficiency; I27.20 Pulmonary hypertension, unspecified; G89.29 Other chronic pain; M19.90 Unspecified osteoarthritis, unspecified site; D50.9 Iron deficiency anemia, unspecified; Z87.19 Personal history of other diseases of the digestive system; Z82.49 Family history of ischemic heart disease and other diseases of the circulatory system; Z91.19 Patient's noncompliance with other medical treatment and regimen; Z79.899 Other long term (current) drug therapy; Z90.49 Acquired absence of other specified parts of digestive tract; Z90.710 Acquired absence of both cervix and uterus; Z84.89 Family history of other specified conditions
CPT/HCPCS: 10879; 62110; 62900; 70005

== ENCOUNTER 2019-07-16 08:49 | Inpatient (IN) | payer OTHER ==
[~2019-07-16] VITALS: Ht 160 cm; Wt 84.7 kg
[~2019-07-16 08:49] MED LIST changes: +AMLODIPINE BESY10 MG PO; +AZITHROMYCIN 2250 MG PO; +DEMADEX 2020 MG/1 TA PO; +K-DUR 20 MEQ T20 MEQ PO; +METOPROLOL SUCC50 MG PO; +PREDNISONE 20 M20 M1 PO; +VITAMIN B-12500 MCG PO
[2019-07-16 10:34] VITALS: BP 128/66
[2019-07-16] MEDS ORDERED: PROTONIX 20 MG20 M1 PO (11:08)
[2019-07-16] MEDS ORDERED: CARAFATE 1 GM TA1 G1 PO (11:08)
[2019-07-16] MEDS ORDERED: LASIX 20 MG TAB20 MG PO (11:09)
[2019-07-16] MEDS ORDERED: VISTARIL 25 MG25 M1 PO (11:09)
[2019-07-16] MEDS ORDERED: PROAIR HFA8.5 GM ×2 (11:13)
[2019-07-16] MEDS ORDERED: ACCUNEB SO1.25 MG/1 INH (11:13)
[2019-07-16 11:23] VITALS: BP 136/60
[2019-07-16 14:16] LABS: HEMATOCRIT 24.1 % (37.0-47.0); HEMOGLOBIN 7.4 gm/dL (12.0-15.0); MCH 21.4 pg (26.0-34.0); MCV 69.1 fL (80.0-100.0); RBC 3.48 mil/uL (4.20-5.00); RDW 20.7 % (10.5-14.5); WBC 10.3 thou/uL (4.0-11.0)
[2019-07-16 14:37] LABS: CALCIUM 8.5 mg/dL (8.5-10.1); CREATININE 1.7 mg/dL (0.6-1.0)
[2019-07-16 14:42] LABS: ALBUMIN 3.2 g/dL (3.4-5.0); TOTAL BILIRUBIN 0.3 mg/dL (<0.1-1.0); TOTAL PROTEIN 6.5 g/dL (6.4-8.2)
[2019-07-16 15:38] VITALS: BP 133/60
[2019-07-16 16:47] VITALS: BP 119/56
--- NOTE | 2019-07-16 18:03 | NUR ---
PT admitted from [facility] for SOB, PT is A&OX3, PT is continuing o2 1-2l/min/nc , pt's vs and o2sat are stable at this time.pt has lasix 40mg iv today, pt denies pain at this time.
[2019-07-17 03:55] VITALS: BP 128/66
--- NOTE | 2019-07-17 04:25 | NUR ---
Patient making slow progress towards outcome goals. Vital signs and Rhythm stable NSR. Oxygenation optimal with 2L/NC, breath sounds diminished. Calls out appropriately for needs. Gait steady. Starting to show nicotine withdrawal signs, anxious. Orders received for Nocotine patch. Chronis low back pain some relief after Hydrocodone.
[2019-07-17 05:35] LABS: ABSOLUTE NEUTROPHILS 11.8 thou/uL (1.4-8.2); BASOPHILS 0.3 % (0.0-2.0); EOSINOPHILS 0.1 % (0.0-3.0); HEMATOCRIT 23.1 % (37.0-47.0); HEMOGLOBIN 7.1 gm/dL (12.0-15.0); LYMPHOCYTES 6.1 % (24.0-44.0); MCH 21.4 pg (26.0-34.0); MCHC 30.7 g/dL (28.0-37.0); MCV 69.8 fL (80.0-100.0); MONOCYTES 1.9 % (1.0-8.0); PLATELET COUNT 331 thou/uL (150-400); POLYS 91.6 % (36.0-66.0); RDW 20.7 % (10.5-14.5); WBC 12.9 thou/uL (4.0-11.0)
[2019-07-17 06:00] LABS: ALBUMIN 3.3 g/dL (3.4-5.0); POTASSIUM 3.8 mmol/L (3.5-5.1); TOTAL BILIRUBIN 0.3 mg/dL (<0.1-1.0); TOTAL PROTEIN 7.2 g/dL (6.4-8.2)
[2019-07-17 07:14] VITALS: BP 134/72
[2019-07-17 12:53] LABS: % SATURATION 3 % (20-39); IRON 13 ug/dL (50-170); TIBC 400 ug/dL (250-450)
[2019-07-17 13:21] LABS: FOLIC ACID 8.7 ng/mL (8.6-58.9)
[2019-07-17 15:47] VITALS: BP 142/74
--- NOTE | 2019-07-17 17:11 | NUR ---
pt is A&OX3, pt is on o2 2L/MIN/NC, and breathing treatment, pt's sob has improved, pt's hgb 7.1(L) , iron 13 (L) today, pt starts iv iron sucrose complex dose today, pt denies pain and diziness at this time, pt's vs are stable, pt has slowly meeting care plan goals.
[2019-07-17 21:15] VITALS: BP 145/78
[2019-07-18 04:00] VITALS: BP 150/74
--- NOTE | 2019-07-18 05:06 | NUR ---
Pt. requested pain med for chonic lower back pain with some relief. She slept fair during the night. Up ad luz in room with steady gait. She gets anxious at times. Steven arms with edema which pt. stated is lesser than what it has been though it still feels tight. O2 at 2L/NC and verbalized she gets short of breath with exertion. Making some progress towards care plan goals.
[2019-07-18 07:14] VITALS: BP 146/72
--- NOTE | 2019-07-18 10:27 | NUR ---
INITIAL ASSESSMENT: Pt evaluated for d/c planning needs. Reviewed chart and spoke with nurse and pt. Pt is alert and oriented. Pt lives alone in mobile home and was independent with ADL's prior to admission. Pt was hospitalized at [facility] earlier this month and returned home with [facility] for nursing. Pt has walker, nebulizer and oxygen ([employer]) at home. Pt plans on returning home on d/c from hospital. Will notify [facility] on d/c.
[2019-07-18 10:36] VITALS: BP 146/72
--- NOTE | 2019-07-18 10:39 | NUR ---
JOSÉ called [facility] to let them know patient has been admitted here at [facility], we will keep them informed and send dc paperwork when we have it. JOSÉ spoke with Lucia at [facility].
[2019-07-18 10:44] LABS: HEMATOCRIT 24.1 % (37.0-47.0); HEMOGLOBIN 7.1 gm/dL (12.0-15.0); MCH 20.7 pg (26.0-34.0); MCHC 29.5 g/dL (28.0-37.0); MCV 70.3 fL (80.0-100.0); RBC 3.43 mil/uL (4.20-5.00); RDW 20.3 % (10.5-14.5); WBC 22.9 thou/uL (4.0-11.0)
[2019-07-18 10:49] LABS: CALCIUM 9.5 mg/dL (8.5-10.1); CREATININE 1.8 mg/dL (0.6-1.0); MAGNESIUM 1.9 mg/dL (1.8-2.4); POTASSIUM 4.2 mmol/L (3.5-5.1)
--- NOTE | 2019-07-18 11:52 | NUR ---
PT'S assessment has done, pt is A&OX3, pt is continuing o2 2L/MIN/NC,pt has SOB with activities, pt has new consults for cardiology ( CHF) , pulmonology ( COPD) and GI (anemia,recent M2 capsule study), pt has ECHO done now, pt's back pain has controlled by medication, RN has called dr to report abnormal Lab results ( WBC 22.9, HGB 7.1),pt has starts iv IRON 200mg daily, dr order recheck Lab in 07/19/19 Am .
--- NOTE | 2019-07-18 12:20 | 2DMMODE ---
[facility] [place] [address] 2 D/M-MODE ECHOCARDIOGRAM Name: BRIANA DOWLING Room #: 350-P ADM IN .R.#: [id number] Admission: 07/16/19 Attend Phys: Hal Vickers MD Discharge: Date of : 62 Report #: [id number] THIS REPORT FOR: //name// APPROVED REPORT Study performed: 07/18/2019 11:26:23 EXAM: Limited 2D, Doppler, and color-flow Echocardiogram Patient Location: Echo lab Room #: 350 Status: routine BSA: 1.89 HR: 102 bpm BP: 146/72 mmHg Rhythm: Tachycardia Other Information Study Quality: Adequate Indications Limited follow up echo for Respiratory failure. Elevated BNP. Hx: CHF, COPD, HTN. Complete echo done 06/27/19. 2D Dimensions RVDd: 38.81 mm Aortic Valve AoV Peak Angelo.: 2.15 m/s AO Peak Gr.: 18.56 mmHg Tricuspid Valve TR Peak Angelo.: 3.50 m/s RAP Estimate: 10.00 mmHg TR Peak Gr.: 48.00 mmHg PA Pressure: 58.00 mmHg Left Ventricle The left ventricle is normal size. There is normal LV segmental wall motion. Mild concentric left ventricular hypertrophy. Left ventricular systolic function is hyperdynamic. Peak LV gradient of 68mmHg noted. LVEF is >70%. Right Ventricle The right ventricle is normal size. [facility] [address] [place] [address] 2 D/M-MODE ECHOCARDIOGRAM Name: BRIANA DOWLING Room #: 350-P ADM IN M.R.#: [id number] Admission: 07/16/19 Attend Phys: Hal Vickers MD Discharge: Date of : 62 Report #: [id number] Left atrium is dilated. Right atrium is dilated. Aortic Valve Aortic valve appears grossly normal. No aortic regurgitation is present. Mitral Valve The mitral valve is normal in structure. Mild to moderate mitral annular calcification. Mild mitral regurgitation. Tricuspid Valve The tricuspid valve is normal in structure. Trace to mild tricuspid regurgitation. Estimated PAP is 55-60mmHg. Great Vessels IVC is dilated and collapses <50% with inspiration. Pericardium Small circumferential pericardial effusion. <Conclusion> The left ventricle is normal size. LVEF is >70%. The right ventricle is normal size. Left atrium is dilated. Right atrium is dilated. Aortic valve appears grossly normal. The mitral valve is normal in structure. Mild to moderate mitral annular calcification. Mild mitral regurgitation. The tricuspid valve is normal in structure. Trace to mild tricuspid regurgitation. Estimated PAP is 55-60mmHg. Small circumferential pericardial effusion. <ELECTRONICALLY SIGNED> By: Magnus Koch MD 07/18/19 1220 D: 090 Magnus Koch MD /INF
[2019-07-18 16:19] VITALS: BP 158/86
--- NOTE | 2019-07-18 16:50 | NUR ---
pt will be NPO after Midnight for EGD/ small bowel enteroscopy tomorrow, pt has signed consent for this procedure.
[2019-07-18 19:12] VITALS: BP 157/81
[2019-07-19 04:24] VITALS: BP 160/74
[2019-07-19 05:17] LABS: CALCIUM 9.4 mg/dL (8.5-10.1); CREATININE 1.8 mg/dL (0.6-1.0); POTASSIUM 4.5 mmol/L (3.5-5.1)
--- NOTE | 2019-07-19 05:25 | NUR ---
Medicated for pain with some relief. She slept fair during the night. O2 at 2L/NC , shortness of breath with exertion. She has been calm and cooperative with periods of anxiety. Kept NPO since ID for EGD today. Up ad luz in room with steady gait. Will continue to monitor.
[2019-07-19 05:41] LABS: HEMATOCRIT 23.3 % (37.0-47.0); HEMOGLOBIN 7.1 gm/dL (12.0-15.0); MCH 21.4 pg (26.0-34.0); MCHC 30.6 g/dL (28.0-37.0); MCV 70.2 fL (80.0-100.0); PLATELET COUNT 409 thou/uL (150-400); RBC 3.32 mil/uL (4.20-5.00); RDW 20.2 % (10.5-14.5); WBC 20.8 thou/uL (4.0-11.0)
[2019-07-19 07:39] LABS: ABSOLUTE NEUTROPHILS 19.1 thou/uL (1.4-8.2); METAMYELOCYTES 2 %
[2019-07-19 07:40] LABS: ANISOCYTOSIS 2+; MICROCYTES 2+
[2019-07-19 07:41] LABS: HYPOCHROMASIA 2+; POLYCHROMASIA OCCASIONAL
[2019-07-19 08:11] VITALS: BP 154/84
--- NOTE | 2019-07-19 14:23 | NUR ---
SW reviewed chart and spoke with nursing and attending physician. Pt to have EGD today per GI and transfusion today. Pt's diet to be advanced starting today. Pt receiving IV iron infusion for 5 days. Plan is for pt to discharge home and resume HH services with [facility]. KINJAL is following to assist as needed with discharge planning.
[2019-07-19 15:14] VITALS: BP 156/71; BP 174/86
[2019-07-19 16:26] VITALS: BP 171/91
--- NOTE | 2019-07-19 18:54 | NUR ---
Patient had EDG today. She received one unit PRBCs after for low Hg (7.1). Patient is to have iron IV infusion for five days- today was day three of the iron IV infusion. Patient is slowly working toward dischage goals.
[2019-07-19 19:23] VITALS: BP 161/78
[2019-07-20 03:00] VITALS: BP 170/77
--- NOTE | 2019-07-20 03:38 | NUR ---
continues on oxygen, she states that she wears 2 liters at home only at night and for comfort. she conitnues to have back pain and takes hydrocodone for her pain, with effective control. bp runs high with a headache when she is needing her medication. careplan reviewed.
[2019-07-20 07:14] VITALS: BP 164/80
[2019-07-20 09:45] LABS: HEMATOCRIT 27.1 % (37.0-47.0); HEMOGLOBIN 8.1 gm/dL (12.0-15.0); MCH 21.8 pg (26.0-34.0); MCHC 29.9 g/dL (28.0-37.0); MCV 72.9 fL (80.0-100.0); RBC 3.71 mil/uL (4.20-5.00); RDW 21.6 % (10.5-14.5)
[2019-07-20 09:55] LABS: CREATININE 1.7 mg/dL (0.6-1.0); POTASSIUM 4.8 mmol/L (3.5-5.1)
[2019-07-20 15:16] VITALS: BP 145/69
--- NOTE | 2019-07-20 18:03 | NUR ---
Patient had number 4 of 5 IV iron infusion today. 1 unit PRBC transfused yesterday- Hg is 8.1- up from 7.1 yesterday. She is continuing with IV fluids, IV steroids and IV antibiotics. AC/HS BGS, SS insulin- patient has been requiring insulin today. Up ad luz. Chronic back pain- requests PRN hydrocodone frequently, which provides partial relief. Per CM, the paln is for the patient to go home with HH. Patient is progressing towards discharge goals.
[2019-07-20 19:13] VITALS: BP 184/74
[2019-07-20 21:33] VITALS: BP 168/65
[2019-07-21 03:57] VITALS: BP 155/77
--- NOTE | 2019-07-21 05:52 | NUR ---
PT MAKING SLOW PROGRESS TOWARDS GOALS. PT C/O SOA ON ONE OCCASION. PT STATED SHE WAS FEELING WHEEZY. PER RT, SHE REFUSED HER 1899 BREATHING TREATMENT STATING SHE WAS TRYING TO SLEEP. LUNGS DIMINISHED, FAINTLY WHEEZY THROUGHOUT.
[2019-07-21 05:56] LABS: HEMATOCRIT 27.6 % (37.0-47.0)
[2019-07-21 07:32] VITALS: BP 161/76
[2019-07-21 09:03] VITALS: BP 161/76
[2019-07-21] MEDS ORDERED: DEMADEX20 MG PO ×2 (12:14)
[2019-07-21] MEDS ORDERED: CARVEDILOL12.5 MG PO ×2 (12:14)
--- NOTE | 2019-07-21 14:12 | NUR ---
DISCHARGE NOTE: KINJAL reviewed chart and spoke with nursing and attending physician. Pt is medically stable for discharge today. Attending physician recommended SNF placement. Pt with Medicaid only. Therapy ordered today and 5N consult ordered to evaluate pt for inpt acute rehab. 5N rehab PRICE CLERK evaluated pt. Pt is wanting to return directly home. Pt appears to be too high level. KINJAL met with pt and s/o at bedside to discuss discharge plan. Pt requesting info on smaller portable O2 equipment. KINJAL spoke with Denilson at [facility], who states that pt may qualify for portable concentrator. Pt must have a titration test and then info will be submitted to insurance. KINJAL explained to pt and s/o. Both verbalized understanding. Contact info for [facility] and instructions of how to arrange the titration test placed in pt's discharge summary. Pt's s/o to provide transportation home. meeting planner to fax final discharge orders/summary to Shilo CASTILLO. No additional SW needs identified at this time, but is available to assist should needs arise.
--- NOTE | 2019-07-21 14:24 | NUR ---
PT APPROACHED THIS P.M. FOR P.T. EVALUATION. PT REPORTS SHE IS PLANNING TO D/C TO HOME HOPEFULLY LATER TODAY AND DOES NOT FEEL SHE NEEDS PT IN THE HOSPITAL PRIOR TO HER DEPARTURE. PT IS UP AD ALMA PER RN AND DEMONSTRATED ABILITY TO AMBULATE IN ROOM ON 2L AT SBA LEVEL WITHOUT AN A.D. PT HAS A WALKER, O2 AND PULSE OXIMETER TO USE AT HOME. O2 RUNNING AT 97% AFTER SEATED REST X 2 MINUTES. PT AGREEABLE TO HOME HEALTH FOR CONTINUED ENDURANCE TRAINING. RECOMMEND USE OF 4WW TO IMPROVE TOLERANCE FOR LONGER DISTANCE AMBULATION.
--- NOTE | 2019-07-21 14:41 | NUR ---
assumed patient care at 0700. a/o x 4. tolerated on 2l/nc. up ad luz. sob with exertion. dc to home with HH.
[2019-07-22] MEDS ORDERED: PREDNISONE 10 M10 MG PO ×2 (19:21)
[2019-07-22] MEDS ORDERED: METOPROLOL SUCC50 MG PO ×2 (19:22)
[2019-07-22] MEDS ORDERED: POTASSIUM20 PO ×2 (19:23)
[2019-07-22] MEDS ORDERED: DEMADEX20 MG PO ×2 (19:23)
[2019-07-22] MEDS ORDERED: NORCO 5-325 TA1 EAC1 PO ×2 (19:24)
--- NOTE | 2019-07-25 15:41 | NUR ---
KINJAL received call from Trixie at [facility] stating they did not receive discharge orders for pt when she discharged on 07/21. KINJAL reviewed chart and faxed discharge orders/summary to [facility]. Pt was readmitted on 07/22 and discharged on 07/24.
== END 2019-07-21 14:50 | disposition home health service (06) | DRG 871 ==
LOC: 3W 08:49 → ENTRNSPT 07-21 14:41 → 3W 07-21 14:50
PROVIDERS: Internal Medicine Gastroenterology; Nurse Practitioner Adult Health; ADMIT Internal Medicine
PROC: 30233N1 Transfusion of Nonautologous Red Blood Cells into Peripheral Vein, Percutaneous Approach (ICD-10-PCS; principal; 2019-07-19)
PROC: 0DJ08ZZ Inspection of Upper Intestinal Tract, Via Natural or Artificial Opening Endoscopic (ICD-10-PCS; principal; 2019-07-19)
DX: A41.9 Sepsis, unspecified organism (principal); J96.21 Acute and chronic respiratory failure with hypoxia; I50.33 Acute on chronic diastolic (congestive) heart failure; J18.9 Pneumonia, unspecified organism; K31.811 Angiodysplasia of stomach and duodenum with bleeding; J44.1 Chronic obstructive pulmonary disease with (acute) exacerbation; I13.0 Hypertensive heart and chronic kidney disease with heart failure and stage 1 through stage 4 chronic kidney disease, or unspecified chronic kidney disease; N17.9 Acute kidney failure, unspecified; D62 Acute posthemorrhagic anemia; K92.1 Melena; F41.9 Anxiety disorder, unspecified; M54.9 Dorsalgia, unspecified; N18.3 Chronic kidney disease, stage 3 (moderate); D63.8 Anemia in other chronic diseases classified elsewhere; G47.33 Obstructive sleep apnea (adult) (pediatric); K29.80 Duodenitis without bleeding; D50.9 Iron deficiency anemia, unspecified; E78.5 Hyperlipidemia, unspecified; I25.10 Atherosclerotic heart disease of native coronary artery without angina pectoris; K20.8 Other esophagitis; K22.2 Esophageal obstruction; K44.9 Diaphragmatic hernia without obstruction or gangrene; K55.20 Angiodysplasia of colon without hemorrhage; F17.210 Nicotine dependence, cigarettes, uncomplicated; E03.9 Hypothyroidism, unspecified; Z79.899 Other long term (current) drug therapy; Z90.49 Acquired absence of other specified parts of digestive tract; Z90.710 Acquired absence of both cervix and uterus; Z71.6 Tobacco abuse counseling; Z91.14 Patient's other noncompliance with medication regimen; Z79.1 Long term (current) use of non-steroidal anti-inflammatories (NSAID); Z79.51 Long term (current) use of inhaled steroids; Z91.19 Patient's noncompliance with other medical treatment and regimen
CPT/HCPCS: 10879; 62110; 62900; 70005

== ENCOUNTER 2019-07-22 17:38 | Inpatient (IN) | payer OTHER ==
[~2019-07-22] VITALS: Ht 160 cm; Wt 84.8 kg
[2019-07-22 17:38] VITALS: BP 182/142
[~2019-07-22 17:38] MED LIST changes: +ACCUNEB SO1.25 MG/1 INH; +CARVEDILOL12.5 MG PO; +DEMADEX20 MG PO; +PROAIR HFA8.5 GM; +VISTARIL 25 MG25 M1 PO
[2019-07-22] MEDS ORDERED: PREDNISONE 10 M10 MG PO ×2 (19:21)
[2019-07-22] MEDS ORDERED: METOPROLOL SUCC50 MG PO ×2 (19:22)
[2019-07-22] MEDS ORDERED: DEMADEX20 MG PO ×2 (19:23)
[2019-07-22] MEDS ORDERED: POTASSIUM20 PO ×2 (19:23)
[2019-07-22] MEDS ORDERED: NORCO 5-325 TA1 EAC1 PO ×2 (19:24)
[2019-07-22 20:01] LABS: HCO3 27.1 mmol/L (22.0-26.0); pH 7.398 (7.360-7.450); sO2 92.9 % (92.0-98.0)
[2019-07-22 20:32] LABS: HEMATOCRIT 30.8 % (37.0-47.0); HEMOGLOBIN 9.5 gm/dL (12.0-15.0); MCH 23.3 pg (26.0-34.0); MCHC 30.8 g/dL (28.0-37.0); MCV 75.6 fL (80.0-100.0); PLATELET COUNT 421 thou/uL (150-400); RBC 4.08 mil/uL (4.20-5.00); RDW 22.6 % (10.5-14.5); WBC 15.4 thou/uL (4.0-11.0)
[2019-07-22 20:46] LABS: APTT 22.2 Seconds (24.5-32.8); PROTIME 10.7 Seconds (9.3-11.4)
[2019-07-22 20:53] LABS: CALCIUM 8.7 mg/dL (8.5-10.1); CREATININE 1.1 mg/dL (0.6-1.0); POTASSIUM 4.5 mmol/L (3.5-5.1)
[2019-07-22 21:03] LABS: ABSOLUTE NEUTROPHILS 12.6 thou/uL (1.4-8.2); ALBUMIN 3.4 g/dL (3.4-5.0); ANISOCYTOSIS 3+; ATYPICAL LYMPHS 1 %; MAGNESIUM 2.2 mg/dL (1.8-2.4); METAMYELOCYTES 4 %; MICROCYTES 1+; MYELOCYTES 1 %; NUCLEATED RBCS 2 /100WBC; POLYCHROMASIA 1+; TOTAL BILIRUBIN 0.6 mg/dL (<0.1-1.0); TOTAL PROTEIN 6.4 g/dL (6.4-8.2); TROPONIN-I 0.11 ng/mL (<0.06)
[2019-07-22 22:05] VITALS: BP 174/79
[2019-07-22 22:14] VITALS: BP 174/79
--- NOTE | 2019-07-23 01:17 | NUR ---
ASSESSMENT: PT ARRIVED TO THE UNIT ACCOMPANIED BY ED STAFF AT APPROXIMATEY 2230. PT IS ALERT AND ORIENT TIMES FOUR. SOB WITH EXERTION, 4 LITERS PER NC ON AT THE TIME. 02 SATS WERE 90% PT WAS JUST DC'D ONE DAY AGO. ADMISSON COMPLETED, PT WISHING TO GET SOMETHING TO DRINK AND TO GO TO SLEEP. DENIES PAIN AND N/V. BLOOD PRESSURE ELEVATED, HYDRALAZINE AND LASIX GIVEN IN ED. SR-ST PER MONITOR. CONSULT FOR SANDI SZYMANSKI F. PENDING FOR CHF AND HTN HX. WILL CONTINUE TO MONITOR.
[2019-07-23 03:45] VITALS: BP 155/76
[2019-07-23 07:07] VITALS: BP 159/74
[2019-07-23 11:22] VITALS: BP 156/69
[2019-07-23 16:48] VITALS: BP 165/67
--- NOTE | 2019-07-23 17:40 | NUR ---
ASSUMED CARE OF PT AT 0700. PT AOX4 IN NO ACUTE DISTRESS. REPORTS FEELING BETTER. UP AD ALMA W/ STEADY GAIT - EVALUATED BY PT. VOIDING WELL IN BSC. CALLS OUT APPROPRIATELY. DIM/WHZ TO AUSCULTATION. PT VOICING NO CONCERNS AT THIS TIME. UNEVENTFUL ON TELEMETRY. PT PROGRESSING TOWARD POC GOALS.
[2019-07-23 20:15] VITALS: BP 159/78
--- NOTE | 2019-07-24 01:11 | NUR ---
resting quietly tonight. complains of pain to her lower back that radioates to her left shoulder, she stated that it has been like that for months. calls approp to get up to the BR. continues on oxygen at 3 liter n/c. she is comfortable with her breathing status at this time.
[2019-07-24 04:20] VITALS: BP 155/76
[2019-07-24 05:04] LABS: HEMATOCRIT 28.4 % (37.0-47.0); HEMOGLOBIN 8.7 gm/dL (12.0-15.0); MCH 23.2 pg (26.0-34.0); MCHC 30.5 g/dL (28.0-37.0); MCV 76.2 fL (80.0-100.0); RBC 3.72 mil/uL (4.20-5.00); RDW 24.3 % (10.5-14.5); WBC 11.8 thou/uL (4.0-11.0)
[2019-07-24 05:24] LABS: CALCIUM 8.6 mg/dL (8.5-10.1); CREATININE 1.2 mg/dL (0.6-1.0); POTASSIUM 3.7 mmol/L (3.5-5.1)
[2019-07-24 07:46] VITALS: BP 146/76
[2019-07-24 10:43] VITALS: BP 146/76
[2019-07-24 11:12] VITALS: BP 128/59
[2019-07-24 12:32] VITALS: BP 128/59
--- NOTE | 2019-07-24 13:22 | EKG ---
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 : 1960 Requested By: Tim Maddox Order Number: [id number] MD: Shadi Thompson Measurements Intervals [place] Rate: 88 P: 79 AK: 171 QRS: 35 QRSD: 83 T: 146 QT: 331 QTc: 401 Interpretive Statements Sinus rhythm Anteroseptal infarct, old Repol abnrm suggests ischemia, lateral leads Compared to ECG 06/28/2019 10:09:22 No significant change was found Electronically Signed On 07-24-2019 13:22:35 CDT by Shadi Thompson [email or web address] <ELECTRONICALLY SIGNED> By: Shadi Thompson MD, [facility] 07/24/19 1322 1924 23 Shadi Thompson MD, [facility] /EPI
--- NOTE | 2019-07-24 16:03 | NUR ---
Patient reported pain in her back and her lungs were diminished this am. Patient was discharge and will continue with home health from her previous discharge.
--- NOTE | 2019-07-25 07:14 | NUR ---
PATIENT DISCHARGED PRIOR TO OT EVALUATION BEING COMPLETED.
[2019-07-25 13:46] LABS: HAV IgM AB (ANTI-HAV IgM) Negative (Negative); HEPATITIS B SURFACE AG Negative (Negative); HEPATITIS C VIRUS AB 0.2 (0.0-0.9)
== END 2019-07-24 16:05 | disposition home health service (06) | DRG 948 ==
LOC: ER 17:38 → EROBS 21:41 → 3W 22:23
PROVIDERS: Emergency Medicine; Hospitalist; Nurse Practitioner Acute Care; ADMIT Internal Medicine
DX: R53.1 Weakness (principal); J96.11 Chronic respiratory failure with hypoxia; I50.32 Chronic diastolic (congestive) heart failure; I13.0 Hypertensive heart and chronic kidney disease with heart failure and stage 1 through stage 4 chronic kidney disease, or unspecified chronic kidney disease; J44.9 Chronic obstructive pulmonary disease, unspecified; G89.29 Other chronic pain; M54.9 Dorsalgia, unspecified; F17.210 Nicotine dependence, cigarettes, uncomplicated; R74.0 Nonspecific elevation of levels of transaminase and lactic acid dehydrogenase [LDH]; N18.3 Chronic kidney disease, stage 3 (moderate); D50.9 Iron deficiency anemia, unspecified; Z91.19 Patient's noncompliance with other medical treatment and regimen; Z99.81 Dependence on supplemental oxygen; Z82.49 Family history of ischemic heart disease and other diseases of the circulatory system; Z83.6 Family history of other diseases of the respiratory system; Z90.49 Acquired absence of other specified parts of digestive tract; Z79.899 Other long term (current) drug therapy
CPT/HCPCS: 10879

== ENCOUNTER 2019-12-07 08:46 | Inpatient (IN) | payer OTHER ==
[~2019-12-07] VITALS: Ht 160 cm; Wt 70.8 kg
[~2019-12-07 08:46] MED LIST changes: +NORCO 5-325 TA1 EAC1 PO; +POTASSIUM20 PO
[2019-12-07 10:12] LABS: HEMATOCRIT 31.9 % (37.0-47.0); HEMOGLOBIN 10.1 gm/dL (12.0-15.0); MCH 24.5 pg (26.0-34.0); MCHC 31.6 g/dL (28.0-37.0); MCV 77.6 fL (80.0-100.0); PLATELET COUNT 551 thou/uL (150-400); RBC 4.11 mil/uL (4.20-5.00); RDW 17.5 % (10.5-14.5); WBC 14.6 thou/uL (4.0-11.0)
[2019-12-07 10:22] LABS: CALCIUM 9.7 mg/dL (8.5-10.1); CREATININE 1.8 mg/dL (0.6-1.0); POTASSIUM 4.1 mmol/L (3.5-5.1)
[2019-12-07 10:30] LABS: TROPONIN-I 0.26 ng/mL (<0.06)
[2019-12-07 10:34] LABS: ABSOLUTE NEUTROPHILS 10.8 thou/uL (1.4-8.2); PLATELET ESTIMATE NORMAL
[2019-12-07 13:30] VITALS: BP 111/61
--- NOTE | 2019-12-07 16:20 | EKG ---
[facility] [place] [address] ELECTROCARDIOGRAM REPORT Name: BRIANA DOWLING Room #: 170-6 ADM IN M.R.#: [id number] Admission: 12/07/19 Attend Phys: Saúl Wilkinson MD Discharge: Date of : 62 Report #: [id number] THIS REPORT FOR: cc: Darline Adam Deborah C Couchonnal, Luis F. MD ~ THIS REPORT FOR: //name// [facility] ED Test Date: 2019-12-07 Test Time: 08:49:43 Pat Name: BRIANA DOWLING Department: Room: 170 Gender: F Home Health Speech Therapist: [facility] : 1960 Requested By: Juan Daniel Lyon Order Number: [id number] MD: Sergio Keller Measurements Intervals [place] Rate: 100 P: 82 DE: 172 QRS: 59 QRSD: 84 T: 144 QT: 338 QTc: 436 Interpretive Statements Sinus tachycardia Biatrial enlargement Anteroseptal infarct, old Compared to ECG 07/22/2019 19:24:08 Electronically Signed On 12-07-2019 16:19:54 SALES REPRESENTATIVE METALS by Sergio Keller [email or web address] <ELECTRONICALLY SIGNED> By: Sergio Keller MD 12/07/19 1619 0849 0849 Sergio Keller MD /EPI
[2019-12-07] MEDS ORDERED: SPIRONOLACTONE25 MG PO (19:20)
[2019-12-07] MEDS ORDERED: KLOR-CON M2020 MEQ PO (19:21)
[2019-12-07] MEDS ORDERED: DEMADEX20 MG PO (19:21)
[2019-12-07] MEDS ORDERED: DULERA 200 MCG/13 GM INH (19:22)
[2019-12-07 22:02] VITALS: BP 137/81
[2019-12-07 22:47] VITALS: BP 127/84
[2019-12-08 00:55] VITALS: BP 143/82
--- NOTE | 2019-12-08 03:11 | NUR ---
ADM: PT NEW ADMIT . ARRIVE ON UNIT APPROX. 2200. PT LAERT AND ORIENTED. INITIAL VITALS STABLE. SINUS TACHY ON THE MONITOR WITH RATE IN LOWER 100S. PT DENIES CHEST PAIN AT THIS TIME, NO NAUSEA OR VOMITING. ADMISSION ASSESSMENT COMPLETE, CO ORIENTED TO ROOM AND CALL LIGHT. PT WAS WHEEZING AND COURSE, CONGESTED DURING ASSESSMENT. O2 INCREASE TO 3 LITERS. COAL PULVERIZING OPERATOR NOTIFIED FOR NEBULIZER TREATMENTS. PT ALSO C/O HEADACHE, TYLENOL PRN GIVEN. WILL CONTINUE WITH PLAN OF CARE.
[2019-12-08 04:45] VITALS: BP 140/79
[2019-12-08 06:03] LABS: HEMATOCRIT 35.2 % (37.0-47.0); HEMOGLOBIN 11.1 gm/dL (12.0-15.0); MCH 24.6 pg (26.0-34.0); MCHC 31.6 g/dL (28.0-37.0); MCV 77.7 fL (80.0-100.0); RBC 4.52 mil/uL (4.20-5.00); RDW 17.9 % (10.5-14.5); WBC 15.1 thou/uL (4.0-11.0)
[2019-12-08 06:41] LABS: ALBUMIN 3.3 g/dL (3.4-5.0); CALCIUM 9.5 mg/dL (8.5-10.1); TOTAL BILIRUBIN 0.4 mg/dL (<0.1-1.0); TOTAL PROTEIN 6.8 g/dL (6.4-8.2)
[2019-12-08 06:49] LABS: POTASSIUM 5.3 mmol/L (3.5-5.1)
[2019-12-08 08:15] VITALS: BP 127/77
--- NOTE | 2019-12-08 09:36 | 2DMMODE ---
[facility] [place] [address] 2 D/M-MODE ECHOCARDIOGRAM Name: BRIANA DOWLING Room #: 213-P ADM IN M.R.#: [id number] Admission: 12/07/19 Attend Phys: Saúl Wilkinson MD Discharge: Date of : 62 Report #: [id number] THIS REPORT FOR: cc: Darline Adam Deborah C Lundgren, Craig H. MD [facility] ~ APPROVED REPORT Study performed: 12/08/2019 08:28:51 EXAM: Comprehensive 2D, Doppler, and color-flow Echocardiogram Patient Location: Echo lab Room #: 212 Status: routine BSA: 1.71 HR: 108 bpm BP: 140/79 mmHg Rhythm: NSR^TACHY Other Information Study Quality: Adequate Technically limited study due to limited patient cooperation, COPD. Indications CHF, SOB, CP, elevated troponin. Hx: HTN, COPD. 2D Dimensions RVDd: 27.00 mm IVSd: 13.00 (7-11mm) LVOT Diam: 19.61 (18-24mm) LVDd: 40.00 mm PWd: 14.00 (7-11mm) Ascending Ao: 27.94 (22-36mm) LVDs: 19.03 (25-40mm) Aortic Root: 23.30 mm Volumes Left Atrial Volume (Systole) Single Plane 4CH: 49.33 mL Single Plane 2CH: 63.14 mL LA ESV Index: 36.00 mL/m2 Aortic Valve AoV Peak Angelo.: 1.98 m/s AO Peak Gr.: 15.68 mmHg [facility] [address] [address] 2 D/M-MODE ECHOCARDIOGRAM Name: BRIANA DOWLING Room #: 213-P [facility] IN [facility]#: [id number] Admission: 12/07/19 Attend Phys: Saúl Wilkinson MD Discharge: Date of : 62 Report #: [id number] Pulmonary Valve PV Peak Angelo.: 1.51 m/s PV Peak Gr.: 9.09 mmHg Tricuspid Valve RAP Estimate: 5.00 mmHg Left Ventricle The left ventricle is normal size. There is normal LV segmental wall motion. Moderate concentric left ventricular hypertrophy. Left ventricular systolic function is hyperdynamic. LV peak gradient of 97mmHg and a mean of 41mmHg . LVEF is >70%. This study is not technically sufficient to allow evaluation of the LV diastolic function. Right Ventricle The right ventricle is normal size. The right ventricular systolic function is normal. Atria Left atrium is mildly dilated. The right atrium size is normal. Aortic Valve The aortic valve is normal in structure. No aortic regurgitation is present. There is no aortic valvular stenosis. Mitral Valve Heavily calcified annulus. There is no mitral valve regurgitation noted. No evidence of mitral valve stenosis. Tricuspid Valve The tricuspid valve is normal in structure. There is no tricuspid valve regurgitation noted. Unable to assess PA pressure. Pulmonic Valve The pulmonary valve is normal in structure. There is no pulmonic valvular regurgitation. Great Vessels The aortic root is normal in size. The ascending aorta is normal in size. IVC is normal in size and collapses >50% with inspiration. Pericardium Moderate circumferential pericardial [facility] [address] [place] [address] 2 D/M-MODE ECHOCARDIOGRAM Name: BRIANA DOWLING Room #: 213-P [facility] IN [facility].#: [id number] Admission: 12/07/19 Attend Phys: Saúl Wilkinson MD Discharge: Date of : 62 Report #: [id number] effusion. <Conclusion> Left ventricular systolic function is hyperdynamic. Severe LVOT peak gradient of 97mmHg and a mean of 41mmHg . Moderate concentric left ventricular hypertrophy. There is normal LV segmental wall motion. LVEF is >70%. The aortic valve is normal in structure. No aortic regurgitation or stenosis. Heavily calcified annulus. No mitral valve regurgitation Unable to assess PA pressure. Moderate circumferential pericardial effusion. <ELECTRONICALLY SIGNED> By: Shadi Thompson MD, [facility] 12/08/19 0935 0935 0935 Shadi Thompson MD, FACC /INF
[2019-12-08 14:15] VITALS: BP 1221/56
[2019-12-08 16:30] VITALS: BP 138/80
--- NOTE | 2019-12-08 18:46 | NUR ---
RECEIVED PT'S CARE AROUND 0700; PT. ON BED; AOX4; DURING AM ASSESSMENT C/O BACK PAIN; PRN ACETAMINOPHEN; REFUSED IT; AM MEDICATIONS GIVEN; EDUCATED ABOUT FALL PREVENTIONS; ST. UNDERSTANDING; REFUSED BED ALARM ON; PHYSICIAN NOTIFIED ABOUT PT'S PAIN & PRN MEDICATION; ORDER ON PLACED; ST ON THE MONITOR; SCHEDULED MEDICATION GIVEN; EARLY ON THE AFTERNOON D/C TELE; CHARGED NURSE NOTIFIED; ASSESSMENT CHARGED; FOLLOWING POC; WILL PASS ON REPORT;
[2019-12-08 19:43] LABS: URINE BILIRUBIN NEGATIVE (Negative); URINE BLOOD NEGATIVE (Negative); URINE CLARITY CLEAR; URINE COLOR YELLOW; URINE GLUCOSE-RANDOM* NEGATIVE (Negative); URINE KETONES NEGATIVE (Negative); URINE LEUKOCYTES NEGATIVE (Negative); URINE NITRITE NEGATIVE (Negative); URINE PROTEIN (DIPSTICK) NEGATIVE (Negative); URINE SPECIFIC GRAVITY 1.015 (1.005-1.035); URINE UROBILINOGEN 0.2 E.U./dl (0.2-1.0)
[2019-12-08 19:55] VITALS: BP 131/57
--- NOTE | 2019-12-09 03:51 | NUR ---
ASSUMED PT CARE AT 1900, PT IS ALERT AND ORIENTEDX4, 0N 2L OF O2 VIA NASAL CANNULA, DENIES CHEST PAIN, COMPLAINED OF CHRONIC BACK PAIN, MEDICATION GIVEN PRN WITH PARTIAL RELIEF, NO EDEMA NOTED, BENADRYL GIVEN FOR ITHCING PRN, VITALS STABLE, ASSESSMENTS CHARTED, RESTED WELL, WILL CONTINUE TO MONITOR
[2019-12-09 04:06] LABS: ALBUMIN 3.3 g/dL (3.4-5.0); CALCIUM 8.7 mg/dL (8.5-10.1); CREATININE 2.4 mg/dL (0.6-1.0); PHOSPHORUS 5.3 mg/dL (2.5-4.9)
[2019-12-09 04:27] LABS: POTASSIUM 4.3 mmol/L (3.5-5.1)
[2019-12-09 04:50] VITALS: BP 135/66
[2019-12-09 08:20] VITALS: BP 141/69
--- NOTE | 2019-12-09 11:21 | NUR ---
RECEIVED ORDERS FOR OT EVAL AND TREAT, CHART REVIEW COMPLETE. UPON OT ARRIVAL, PATIENT REPORTS ALREADY WALKING AROUND UNIT BY HERSELF, PERFORMING TOILETING AND PUTTING ON HER PANTS. PATIENT REPORTS NO NEED FOR ACUTE OT SERVICES, SHE HAS BEEN SEEN BEFORE BY ACUTE OT SERVICES SHE REPORTS AND ALREADY KNOWS THE STRATEGIES FOR ENERGY CONSERVATION AND USES THEM. REPORTS SHE KNOWS HER LIMITS.
--- NOTE | 2019-12-09 14:24 | HC ---
[facility] [place] [address] CONSULTATION Name: BRIANA DOWLING Room #: 213-P ADM IN M.R.#: [id number] Admission: 12/07/19 Attend Phys: Saúl Wilkinson MD Discharge: Date of : 62 Report #: [id number] THIS REPORT FOR: cc: Darline Adam, Edwin Bolden MD ~ CC: Saúl Adam REASON FOR CONSULTATION: Elevated creatinine. HISTORY OF PRESENT ILLNESS: This is a 59-year-old with history of hypertension, coronary artery disease, COPD, hyperlipidemia. She has had repeated episodes of shortness of breath and chest pain. She has had repeated hospitalization in numerous facilities as stated including [place] [facility], [facility]. She presented for further evaluation and was found to have an elevated troponin. Creatinine on presentation was also elevated. She is currently being followed by Cardiology. I was consulted to see the patient regarding her chronic kidney disease. The patient had been seen in the past by Dr. Leyva back in 2019 for an elevated creatinine. She was thought to have criteria of right-sided heart failure. I had reviewed her creatinine values all through 2019 and she did have some fluctuating creatinine values, as low as 1.1 and as high as 2.0. She did have proteinuria in the past. Ultrasound was consistent with chronic renal medical disease. She denies nonsteroidal anti-inflammatory medication usage. Her outpatient medications included Lasix, carvedilol, amlodipine, spironolactone. She is followed by the [facility] Clinic in [place]. She does not recall being told that she had kidney problems. She does not recall seeing any kidney doctors. PAST MEDICAL HISTORY: 1. Hypertension. 2. COPD. 3. Hyperlipidemia. 4. Coronary artery disease. 5. Anemia. 6. Cholecystectomy. 7. Hysterectomy. 8. Tonsillectomy. 9. Repeated episodes of fluid overload due to medication noncompliance. FAMILY HISTORY: Significant for coronary artery disease. SOCIAL HISTORY: She is disabled. She continues to smoke. ALLERGIES: None. MEDICATIONS: [facility] [address] [place] [address] CONSULTATION Name: BRIANA DOWLING Room #: 213-P [facility] IN ..#: [id number] Admission: 12/07/19 Attend Phys: Saúl Wilkinson MD Discharge: Date of : 62 Report #: [id number] 1. Albuterol. 2. Amlodipine. 3. Spironolactone. 4. Torsemide. 5. Carvedilol. 6. Potassium. REVIEW OF SYSTEMS: GENERAL: No fever or chills. CARDIOVASCULAR: As per the history of present illness. PULMONARY: As per the history of present illness. GASTROINTESTINAL: No nausea or vomiting. GENITOURINARY: No frequency, no urgency. MUSCULOSKELETAL: No morning stiffness, no back pain. GENITOURINARY: No frequency, no urgency. SKIN: No rash or ulcerations. PHYSICAL EXAMINATION: GENERAL: She is alert, oriented, in no apparent distress. She is on oxygen chronically. Blood pressure is 122/56. HEAD AND NECK: No jugular venous distention. CHEST: No crackles. Limited air entry bilaterally with occasional wheezes. CARDIOVASCULAR: No rub. ABDOMEN: Soft, nontender. EXTREMITIES: Lower extremities, no edema. LABORATORY DATA: Reviewed. Creatinine is up to 2 from 1.8 on presentation. White blood cell count is mildly elevated. IMPRESSION AND PLAN: 1. Chronic kidney disease. 2. Acute kidney injury due to diuresis. 3. Criteria of cor pulmonale given her chronic obstructive pulmonary disease. 4. Elevated white blood cell count while on steroids. 5. Recent rise in the patient's creatinine is associated with diuresis. I will back off diuretics. 6. She needs full workup for her ongoing renal issues. I will initiate the appropriate workup. 7. Avoid further diuresis at this point. Her volume status seems to be appropriate. Most of her issues are related to her chronic obstructive pulmonary disease. 8. Cardiology is following regarding her mildly elevated troponin, and I am not really sure what the significance of the troponin elevation in this patient with an elevated creatinine. 9. Unfortunately, BMP values are not reliable engaging the volume status of the [address] [address] CONSULTATION Name: MATILDE DOWLINGVIRI Donahue Room #: 213-P ADM IN M.R.#: [id number] Admission: 12/07/19 Attend Phys: Saúl Wilkinson MD Discharge: Date of : 62 Report #: [id number] patient. We will see where her numbers will take and we will continue to follow. <ELECTRONICALLY SIGNED> By: Edwin Vallejo MD 12/09/19 1424 1539 2245 Edwin Vallejo MD /nt
--- NOTE | 2019-12-09 16:09 | NUR ---
Chart reviewed and case discussed with the care team. Pt was admitted from home and is indep with gait and adl's. She lives in a mobile home and has support from her sign other and dtrs. She is up ad luz in her room and declined therapy evaluations. She has 5 steps up to her front door.[facility] and a cane and a rwalker if needed. She had hh services in this past July with [facility] and they can accept her back on service should hh be indicated at dc. No dc planning needs indicated at this time. Will remain available should dc needs arise. Nursing reports the pt to be A&ox4.
[2019-12-09 17:45] VITALS: BP 131/70
--- NOTE | 2019-12-09 18:39 | NUR ---
RECEIVED PT'S CARE AROUND 0710; PT. ON BED RESTING WITH EYES CLOSED; EQUAL CHEST RISING NOTICED; DURING AM ASSESSMENT C/O PAIN & ITCHING; PRN PAIN MEDICATION GIVEN WITH AM MEDICATIONS; PT. ST. MEDICATION PRN ITCHING & PAIN MEDICATION IS NOT HELPING; WHEN ASKED ABOUT WHAT TAKES AT HOME IN ORDER TO TREAT ITCHING & PAIN PT. ST. "I TAKE MORPHINE BUT IS NOT PRESCRIBED"; ST. "I GET IT FROM SOMEONE"; DOES NOT KNOW DOSE; ST. "I SPLIT THE PILL & HELP ME TO SLEEP"; PHYSICIAN NOTIFIED; NO NEW ORDERS; NEW PRN ITCHING MEDICATION; GAVE IT; RE-ASSESSMENT PT. RESTING; ST. DECREASE ITCHING; EDUCATED ABOUT FALL PREVENTIONS; ST. "I AM NOT AT FALL RISK"; REFUSED BED ALARM ON; WALKING ON THE ELLIS WITH WALKER; EDUCATED ABOUT CALLING BEFORE WALKING; UPSET; THROUGH THE AFTER RESTING WITH EYES CLOSED; MONITORING; ASSESSMENT CHARGED; FOLLOWING POC; WILL PASS ON REPORT;
[2019-12-09 20:17] VITALS: BP 128/52; BP 94/98
[2019-12-10 04:32] VITALS: BP 120/49
[2019-12-10 06:37] LABS: ALBUMIN 3.1 g/dL (3.4-5.0); CALCIUM 9.2 mg/dL (8.5-10.1); CREATININE 2.1 mg/dL (0.6-1.0); PHOSPHORUS 3.6 mg/dL (2.5-4.9); POTASSIUM 4.2 mmol/L (3.5-5.1)
[2019-12-10 08:00] VITALS: BP 108/44
--- NOTE | 2019-12-10 08:28 | NUR ---
ASSUME CSRE [id number]. PT/VITALS STABLE. DENIES ANY PAIN. COMPLAINS OF LOTS OF ITCHING WITH MODERATE RELIEF FROM HYDROXYZINE. NO DISTRESS NOTED. ADEQUATE REST NOTED. TOLERATES ACTIVITY WELL. WILL CONITUE TO FOLLOW WITH POC
[2019-12-10] MEDS ORDERED: METOPROLOL SUCC50 MG PO (12:30)
[2019-12-10] MEDS ORDERED: DILTIAZEM 24HR180 M1 PO (12:30)
[2019-12-10 12:54] VITALS: BP 108/44
--- NOTE | 2019-12-10 13:52 | NUR ---
REPORT RECEIVED FROM DEON RN, PT RESTING IN BED, ASSESSED, VSS, DISCUSSED POC WITH PT, PT VERBALIZED UNDERSTANDING, PT'S DAUGHTER CAME TO ROOM AFTER PT DISCUSSED DC WITH DR MACIAS. IV REMOVED BY HAL, [employer] TECHNICAL ARCHITECT, DC INSTRUCTIONS REVIEWED WITH PT AND DAUGHTER, BOTH VERBALIZED UNDERSTANDING, PT STATES THAT SHE WILL FOLLOW UP IN DR TORRES'S OFFICE. PT LEFT WITH DAUGHTER
[2019-12-12 15:12] LABS: GLOBULIN TOTAL 2.9 g/dL (2.2-3.9); M-SPIKE Not Observed g/dL (Not Observed)
[2019-12-13 02:07] LABS: ANTI-RNP <0.2 AI (0.0-0.9)
== END 2019-12-10 13:49 | disposition home or self-care (01) | DRG 291 ==
LOC: ER 08:46 → EROBS 13:27 → 2N 13:27
PROVIDERS: Emergency Medicine; Hospitalist; ADMIT Hospitalist
DX: I13.0 Hypertensive heart and chronic kidney disease with heart failure and stage 1 through stage 4 chronic kidney disease, or unspecified chronic kidney disease (principal); I50.31 Acute diastolic (congestive) heart failure; J96.20 Acute and chronic respiratory failure, unspecified whether with hypoxia or hypercapnia; N17.9 Acute kidney failure, unspecified; J44.1 Chronic obstructive pulmonary disease with (acute) exacerbation; J44.9 Chronic obstructive pulmonary disease, unspecified; G89.29 Other chronic pain; M54.9 Dorsalgia, unspecified; N18.3 Chronic kidney disease, stage 3 (moderate); I25.10 Atherosclerotic heart disease of native coronary artery without angina pectoris; E78.5 Hyperlipidemia, unspecified; D64.9 Anemia, unspecified; T50.2X5A Adverse effect of carbonic-anhydrase inhibitors, benzothiadiazides and other diuretics, initial encounter; I27.81 Cor pulmonale (chronic); F17.210 Nicotine dependence, cigarettes, uncomplicated; Y92.89 Other specified places as the place of occurrence of the external cause; Z91.19 Patient's noncompliance with other medical treatment and regimen; Z90.49 Acquired absence of other specified parts of digestive tract; Z90.710 Acquired absence of both cervix and uterus; Z82.49 Family history of ischemic heart disease and other diseases of the circulatory system; Z83.6 Family history of other diseases of the respiratory system; Z71.6 Tobacco abuse counseling
CPT/HCPCS: 10081; 10797

== ENCOUNTER 2020-08-04 21:00 | Inpatient (IN) | payer OTHER ==
[~2020-08-04 21:00] MED LIST changes: +DILTIAZEM 24HR180 M1 PO; +KLOR-CON M2020 MEQ PO; +SPIRONOLACTONE25 MG PO
[2020-08-04 22:00] VITALS: BP 117/72
[2020-08-05 02:19] VITALS: BP 130/88
== END 2020-08-05 02:40 | disposition short-term general hospital (02) | DRG 948 ==
LOC: 2N 21:00
PROVIDERS: ADMIT Internal Medicine; ATTEND Internal Medicine
DX: R77.8 Other specified abnormalities of plasma proteins (principal); H54.61 Unqualified visual loss, right eye, normal vision left eye; Z90.49 Acquired absence of other specified parts of digestive tract; Z90.710 Acquired absence of both cervix and uterus; Z90.89 Acquired absence of other organs; Z79.899 Other long term (current) drug therapy
CPT/HCPCS: 10081

== ENCOUNTER 2020-10-24 11:31 | Emergency (ER) | payer OTHER ==
[~2020-10-24] VITALS: Ht 172.7 cm; Wt 77.1 kg
[2020-10-24 11:31] VITALS: BP 108/52
[2020-10-24 12:07] LABS: CALCIUM 8.3 mg/dL (8.5-10.1); CREATININE 1.9 mg/dL (0.6-1.0); HEMATOCRIT 24.6 % (37.0-47.0); HEMOGLOBIN 7.4 gm/dL (12.0-15.0); MCH 23.4 pg (26.0-34.0); MCHC 30.2 g/dL (28.0-37.0); MCV 77.4 fL (80.0-100.0); PLATELET COUNT 325 thou/uL (150-400); RBC 3.18 mil/uL (4.20-5.00); RDW 19.5 % (10.5-14.5); WBC 12.8 thou/uL (4.0-11.0)
[2020-10-24 12:18] LABS: ALBUMIN 2.9 g/dL (3.4-5.0); TOTAL BILIRUBIN 0.4 mg/dL (0.2-1.0); TOTAL PROTEIN 6.3 g/dL (6.4-8.2); TROPONIN-I 0.09 ng/mL (<0.06)
[2020-10-24 12:53] LABS: ABSOLUTE NEUTROPHILS 9.2 thou/uL (1.4-8.2); MYELOCYTES 1 %
[2020-10-24 12:54] LABS: ANISOCYTOSIS 1+; HYPOCHROMASIA 1+; POIKILOCYTOSIS SLIGHT; TEARDROPS OCCASIONAL
--- NOTE | 2020-10-25 07:38 | EKG ---
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: SHAYNE : 1960 Requested By: Eagle Griggs Order Number: [id number] MD: Shadi Thompson Measurements Intervals [place] Rate: 50 P: 87 DE: 178 QRS: 47 QRSD: 82 T: 113 QT: 461 QTc: 421 Interpretive Statements Sinus rhythm LVH with secondary repolarization abnormality Anterior Q waves, possibly due to LVH Compared to ECG 12/07/2019 08:49:43 No significant changes found Electronically Signed On 10-25-2020 7:38:04 INBOUND SALES CONSULTANT by Shadi Thompson [email or web address] <ELECTRONICALLY SIGNED> By: Shadi Thompson MD, [facility] 10/25/20 0738 1143 1143 Shadi Thompson MD, FACC /EPI
== END 2020-10-24 12:00 | disposition left against medical advice (07) ==
LOC: ER 11:31
PROVIDERS: Emergency Medicine
DX: R00.1 Bradycardia, unspecified (principal); R03.1 Nonspecific low blood-pressure reading; I13.0 Hypertensive heart and chronic kidney disease with heart failure and stage 1 through stage 4 chronic kidney disease, or unspecified chronic kidney disease; I50.9 Heart failure, unspecified; N18.30 Chronic kidney disease, stage 3 unspecified; J44.9 Chronic obstructive pulmonary disease, unspecified; F17.210 Nicotine dependence, cigarettes, uncomplicated; Z90.711 Acquired absence of uterus with remaining cervical stump; Z98.890 Other specified postprocedural states; Z79.899 Other long term (current) drug therapy; Z53.29 Procedure and treatment not carried out because of patient's decision for other reasons